=== PATIENT | male | born 1950 | race Caucasian/White ===

== ENCOUNTER 2016-06-26 11:57 | Inpatient (IN) ==
[2016-06-26 12:53] LABS: Basophils % 0.2 % (0.0-0.8); Eosinophils % 0.2 % (0.00-10.9); Hematocrit 22.1 VOL% (42.0-52.0); Hemoglobin 7.6 GM/DL (14.0-18.0); Immature Granulocytes % 4.5 %; Immature Granulocytes Absolute 0.68 #; Lymphocytes # 2.1 10*3/uL (1.4-4.0); Lymphocytes % 13.9 % (21.2-54.2); Mean Corpuscular HGB Conc 34.4 GM/DL (32-36); Mean Corpuscular Hemoglobin 34 PG (27-34); Mean Corpuscular Volume 99.1 FL (87-102); Mean Platelet Volume 10.5 FL (9.6-12.0); Monocytes # 1.1 10*3/uL (0.11-0.8); Monocytes % 7.3 % (1.7-12.7); NRBC # 0.15 10*3/uL; Neutrophils # 11.2 10*3/uL (1.4-7.4); Neutrophils % 73.9 % (38.7-73.9); Platelet Count 167 T/CUMM (130-400); Red Blood Count 2.23 MC/CUMM (3.8-5.5); Red Cell Distribution Width 13.7 % (9.3-17.3); White Blood Count 15.1 T/CUMM (4-12)
[2016-06-26 13:03] LABS: Calcium 8.6 MG/DL (8.5-10.1); Osmolality,Calculated 283.5 MOS/KG (273-304)
[2016-06-26] MEDS ORDERED: SODIUM CHLORIDE 0.9% 250 ML IV PRN ×2 (13:08→14:10)
[2016-06-26] MEDS ORDERED: ONDANSETRON 4 MG/2 ML VIAL IV PRN (13:33)
--- NOTE | 2016-06-26 13:56 | Hospitalist History & Physical ---
Assessment and Plan - Time spent with patient Time spent with patient: Greater than 30 minutes (34 minutes spent on admission) (1) Gastrointestinal bleeding, upper Status: Acute Assessment and plan: CXR U/A Serial H/H q 4 hours x 3 Transfuse two units of blood. GI consult May want to consider CT of abdomen History of Present Illness Chief complaint: GI Bleed History of present illness: Mr. Sweeney is a 66 year old male with history of Diverticulosis. Has not had a flare in 13 years. States he had a GI bleed 13 yaers ago that was a "ruptured Diverticulum with an abscess". States he notice dark tarry stool for several days became nauseated and weak today. Was seen by Dr. Scott today and sent to ER with H/H of 08/26. He denies any abdominal pain or discomfort. Has had no vomiting. Has had issues with urinary difficulty but has been told he has an enlarged prostate. Denies blood in his urine. He takes a baby asa daily with over the counter vitamins but no prescription medications. He is being admitted to the Hospitalist Service as observation. he will require a blood transfusion. Serial H/H with GI consult and the possibility of Endoscopy/ Colonoscopy. Home Medications Medication Instructions Recorded Confirmed Type Aspirin [Aspirin EC] 81 mg PO DAILY 06/26/16 06/26/16 History Multivitamin [Multivitamins] 1 each PO DAILY 06/26/16 06/26/16 History [place]-3/Dha/Epa/Fish Oil [Fish Oil 1 each PO DAILY 06/26/16 06/26/16 History 1,000 mg Softgel] Allergies Allergy/AdvReac Type Severity Reaction Status Date / Time No Known Allergies Allergy Unverified 06/26/16 12:05 Medical,Surgical,& Family Hx - Medical History Cardio: No history of: Congenital Heart Disease, Hypertension Neurology: No history of: Dementia HEENT: No history of: Ear Problem, Eye Problem, Dental Problems Endocrine: No history of: Diabetes Mellitus (NIDDM) Rheumatology: No history of;: Gout Genitourinary: History of: Prostate Problems Gastrointestinal: History of: Diverticulitis/ Diverticulosis No history of: GERD Hematology: History of: Anemia - Social History Smoking Status: Never smoker Frequency of Alcohol Use: None Type of Drug Use: None - Constitutional Constitutional: Present: fatigue, weakness. Absent: chills, fever(s), headache( s) - EENT Eyes: Absent: blurry vision Ears: Absent: decreased hearing Nose, mouth and throat: Absent: dysphagia, headache(s), sore throat, throat swelling - Cardiovascular Cardiovascular: Absent: chest pain at rest, dyspnea, edema - Respiratory Respiratory: Present: dyspnea on exertion. Absent: cough, dyspnea - Gastrointestinal Gastrointestinal: Present: nausea. Absent: abdominal pain, diarrhea, vomiting, jaundice - Genitourinary Genitourinary: Present: difficulty urinating - Musculoskeletal Musculoskeletal: Absent: joint swelling - Neurological Neurological: Absent: abnormal gait - Psychiatric Psychiatric: Absent: confusion - Endocrine Endocrine: Present: fatigue Exam - Constitutional Vitals: Period Temp Pulse Resp BP Sys/Flores Pulse Ox Last 24 Hr 98.3 F-98.3 F 85-91 19-20 135-178/89-97 98-100 General appearance: no acute distress - Head Head exam: Present: normal inspection - Eye Eye exam: Present: EOMI Pupils: Present: SHONDA - ENT ENT exam: Present: normal oropharynx - Neck Neck exam: Present: normal inspection. Absent: lymphadenopathy, thyromegaly - Respiratory Respiratory exam: Present: clear to auscultation bilaterally. Absent: chest wall tenderness, decreased breath sounds - Cardiovascular Cardiovascular exam: Present: regular rate and rhythm - GI/Abdominal GI/Abdominal exam: Present: hernia, soft. Absent: ascites, distended, firm, guarding, mass, tenderness, rebound - Extremities Exam Extremities exam: Present: normal inspection, full ROM - Back Exam Back exam: Present: normal inspection - Neurological Exam Neurological exam: Present: alert, oriented X3 - Psychiatric Psychiatric exam: Present: normal affect, normal mood - Skin Skin exam: Present: normal color, warm. Absent: cyanosis Results - Labs CBC & BMP: 06/26/16 12:20 06/26/16 12:20 - Diagnostic Findings Procedure: Chest x-ray: pending Quality Measures - VTE Contraindication to Pharmacological VTE Prophylaxis: Active Bleeding
[2016-06-26 15:10] LABS: % Iron Saturation 41.1 % (18-50); Ferritin 135.8 ng/ml (26-388)
--- NOTE | 2016-06-26 15:22 | Gastrointestinal Consult Note ---
Assessment and Plan (1) Gastrointestinal bleeding, upper Status: Acute Assessment and plan: 06/26-2 day history of fatigue/weakness and melena with findings of hemoglobin [address] Morales's office. Heme positive stools noted as well. No recent upper endoscopy. No reported regular NSAID use. Patient to be transfused 2 units of packed red blood cells. Plan for upper endoscopy tomorrow to further evaluate. Plan an addendum to followed by Dr. Kitchen Current Visit: Yes History of Present Illness Chief complaint: Heme positive stools, anemia History of present illness: Mr. Sweeney is a 66 year old male who presented to the clinic today to see Dr. Scott with complaints of weakness and fatigue. Patient states that he was in his usual state of health until Sunday when he noticed that he was not feeling well. He states that he noticed he was more fatigued than usual and also noticed that same day that his stools began to turn dark and tarry. Patient states that he presented to see Dr. Scott today for evaluation and at time of visit was found to have anemia with a hemoglobin of 7 as well as 4+ heme positive stools per patient's . Patient was direct admitted to the hospital for further workup. Patient states that he has never had a GI bleed in the past. Denies any abdominal pain, nausea, or vomiting. Denies any recent weight loss. Denies any dysphagia or odynophagia. States he has noticed recently that he has had increase dyspepsia after he eats. He also states that he has noticed increased coughing episodes after eating. He denies a history of reflux and does not take anything for this. He denies heavy NSAID use other than one ibuprofen every 3 or 4 days. He he denies a history of smoking but states he does drink on average 2 beers a day and has done so for many years. He has a history of a perforated diet for testicular abscess in 2008 which was resected by Dr. Jackson. He states that he has not had any further problems since this time. His last known EGD was in 2008 with normal findings and his last colonoscopy was in 2004 with only findings of sigmoid diverticulosis and small internal hemorrhoids. He states that he has not had any repeat endoscopy since this time. On admission hemoglobin noted at 7.6 with a BUN/creatinine ratio 33. Home Medications Medication Instructions Recorded Confirmed Type Aspirin [Aspirin EC] 81 mg PO DAILY 06/26/16 06/26/16 History Multivitamin [Multivitamins] 1 each PO DAILY 06/26/16 06/26/16 History [place]-3/Dha/Epa/Fish Oil [Fish Oil 1 each PO DAILY 06/26/16 06/26/16 History 1,000 mg Softgel] Allergies Allergy/AdvReac Type Severity Reaction Status Date / Time No Known Allergies Allergy Unverified 06/26/16 12:05 Medical,Surgical,& Family Hx - Medical History Cardio: No history of: Congenital Heart Disease, Hypertension Neurology: No history of: Dementia HEENT: No history of: Ear Problem, Eye Problem, Dental Problems Endocrine: No history of: Diabetes Mellitus (NIDDM) Rheumatology: No history of;: Gout Genitourinary: History of: Prostate Problems Gastrointestinal: History of: Diverticulitis/ Diverticulosis No history of: GERD Musculoskeletal: No history of: Amputation Hematology: History of: Anemia - Surgical History Cardiac Surgeries: Patient Denies: Cardiac Catheterization Thoracic Surgeries: Patient denies;: Lobectomy Abdominal Surgeries: Surgical HX of: Abdominal Surgery, Cholecystectomy (13in small in), Colonoscopy, Hernia Repair Reproductive Surgeries: Patient denies;: Genitourinary Surgery - Family History Family History: Reports;: Family Diabetes (mother and father), Family Heart Disease, Family Hypertension ("everybody") - Social History Smoking Status: Never smoker Frequency of Alcohol Use: Frequently Type of Drug Use: None 12 point system: reviewed and no additional remarkable complaints except as stated - Constitutional Constitutional: Present: as per HPI, lethargy, weakness - EENT Eyes: Present: as per HPI Ears: Present: as per HPI Nose, mouth and throat: Present: as per HPI - Cardiovascular Cardiovascular: Present: as per HPI - Respiratory Respiratory: Present: as per HPI - Gastrointestinal Gastrointestinal: Present: as per HPI, bloating, dyspepsia - Genitourinary Genitourinary: Present: as per HPI - Musculoskeletal Musculoskeletal: Present: as per HPI - Neurological Neurological: Present: as per HPI - Psychiatric Psychiatric: Present: as per HPI - Endocrine Endocrine: Present: as per HPI - Hematologic/Lymphatic Hematologic/Lymphatic: Present: as per HPI Exam - Constitutional Vitals: Period Temp Pulse Resp BP Sys/Flores Pulse Ox Last 24 Hr 98.0 F 89 18 186/94 100 General appearance: normal weight, no acute distress - Head Head exam: Present: normal inspection, normocephalic - Eye Eye exam: Present: other (Lids and conjunctive are unremarkable). Absent: scleral icterus - ENT ENT exam: Present: normal exam, normal oropharynx - Neck Neck exam: Present: normal inspection - Respiratory Respiratory exam: Present: clear to auscultation bilaterally. Absent: rales, rhonchi, wheezes - Cardiovascular Cardiovascular exam: Present: regular rate and rhythm. Absent: diastolic murmur , JVD, systolic murmur - GI/Abdominal GI/Abdominal exam: Present: normal bowel sounds, soft. Absent: ascites, distended, mass, organomegaly, tenderness - Extremities Exam Extremities exam: Present: normal inspection, full ROM - Back Exam Back exam: Present: normal inspection - Neurological Exam Neurological exam: Present: alert, oriented X3 - Psychiatric Psychiatric exam: Present: normal affect, normal mood - Skin Skin exam: Present: normal color, warm, dry Results - Labs CBC & BMP: 06/26/16 12:20 06/26/16 12:20 Lab Results: I have reviewed the past 24 hour labs Quality Measures - VTE Contraindication to Pharmacological VTE Prophylaxis: Active Bleeding - Stroke Symptom Onset Unknown: No
--- NOTE | 2016-06-26 15:45 | XRay Report ---
XR chest 2V Indication: GI bleed Comparison: None. Technique: PA and lateral chest x-ray was performed. Findings: Heart size, mediastinal contour, and hilar structures demonstrate no significant abnormalities. The lung parenchyma is clear. Bones and soft tissues demonstrate no significant abnormalities. Moderate left glenohumeral joint degenerative changes are suggested. Impression: 1. No findings are present to suggest etiology of the provided symptoms. 06/26/2016 3:41 PM PROCEDURE INTERPRETED AT [facility] DEPARTMENT OF RADIOLOGY Final Report Signed by: Dr. Santino Alba
[2016-06-26 16:10] LABS: Folate > 24.0 NG/ML (5.4-24.0); Vitamin B12 302 PG/ML (211-911)
[2016-06-26 16:48] LABS: Apearance,Urine CLEAR (Clear); Bilirubin,Urine Negative (Negative); Blood, Urine Negative (Negative); Glucose,Urine (UA) Negative (Negative); Ketones,Urine Negative (Negative); Nitrite,Urine Negative (Negative); Protein,Urine Negative; RBC,Urine <1 /HPF (0-4); Urine Color Yellow (Yellow); Urine Specific Gravity 1.015 (1.001-1.035); Urine Urobilinogen < 2.0 EU/DL (0.2-1.0); WBC,Urine 1 /HPF (0-6)
[2016-06-26] MEDS: PANTOPRAZOLE 40 MG VIAL IV SCH (22:32)
[2016-06-27 00:49] LABS: Hematocrit 21.1 VOL% (42.0-52.0); Hemoglobin 7.1 GM/DL (14.0-18.0)
[2016-06-27 06:10] LABS: Basophils % 0.3 % (0.0-0.8); Eosinophils # 0.2 10*3/uL (0.0-0.87); Eosinophils % 1.4 % (0.00-10.9); Hematocrit 21.2 VOL% (42.0-52.0); Hemoglobin 6.9 GM/DL (14.0-18.0); Immature Granulocytes % 4.6 %; Lymphocytes # 2.3 10*3/uL (1.4-4.0); Mean Corpuscular HGB Conc 32.5 GM/DL (32-36); Mean Corpuscular Hemoglobin 31 PG (27-34); Mean Corpuscular Volume 95.9 FL (87-102); Mean Platelet Volume 10.5 FL (9.6-12.0); Monocytes # 0.9 10*3/uL (0.11-0.8); Monocytes % 8.5 % (1.7-12.7); Neutrophils % 64.2 % (38.7-73.9); Platelet Count 133 T/CUMM (130-400); Red Blood Count 2.21 MC/CUMM (3.8-5.5); Red Cell Distribution Width 16.7 % (9.3-17.3); White Blood Count 10.9 T/CUMM (4-12)
[2016-06-27 06:47] LABS: Calcium 7.9 MG/DL (8.5-10.1); Osmolality,Calculated 285.1 MOS/KG (273-304); Potassium 3.9 MMOL/L (3.5-5.1)
[2016-06-27] MEDS ORDERED: SODIUM CHLORIDE 0.9% 250 ML IV PRN (08:04)
--- NOTE | 2016-06-27 08:37 | EKG Report ---
Stationary ECG Study [facility] Test Date: 06/27/2016 8:37:01 AM Pat Name: AGNES HSU Department: Room: 243 Gender: M Director Of Design: PEBBLES : 1950 Requested by: Ashli Stephen Order Number: [id number] Reading MD: DESHAWN SHELL Intervals [place] Rate: 69 P: -23 VA: 181 QRS: 3 QRSD: 94 T: 30 QT: 380 QTc: 399 Interpretive Statements SINUS RHYTHM LEFT VENTRICULAR HYPERTROPHY AND ST-T CHANGE INFERIOR MYOCARDIAL INFARCTION, PROBABLY OLD WITH POSTERIOR EXTENSION Electronically Signed On 06-27-16 14:56:14 CDT by DESHAWN SHELL [email or web address]
[2016-06-27] MEDS: PANTOPRAZOLE 40 MG VIAL IV SCH ×2 (08:43→20:53)
--- NOTE | 2016-06-27 12:22 | Physician Query Form ---
CLICK EDIT DOCUMENT TO SELECT QUERY ANSWER --> OK --> SIGN Bere Alba RN, CCDS Certified Clinical Relief Operator W) [phone] (f) [phone] [email or web address] PROVIDERS: Make your selection(s) from the choices in EACH section by typing an "x" and enter comments in the comment section. Please use your independent medical judgment in providing your response. This request does not imply that any particular answer is desired or expected. CLINICAL INDICATORS: (Providers should not edit this section) The medical record indicates that the patient was admitted with Gastrointestinal Bleeding, HH 7.6/22.1 AND the patient was given 2 units of blood. Based on the above, could you clarify which of the following conditions you are evaluating, treating, and/or monitoring? ( x) Blood loss anemia ( x) acute ( ) chronic ( ) acute on chronic ( ) Acute blood loss anemia on baseline chronic anemia ( ) Acute blood loss anemia as a complication of a procedure ( ) Iron deficiency anemia not associated with blood loss ( ) Dilutional anemia due to IV fluids ( ) Anemia due to chemotherapy ( ) Anemia due to neoplastic disease ( ) Anemia due to chronic kidney disease ( ) Pernicious anemia ( ) Aplastic anemia ( ) Hemolytic anemia ( ) immune ( ) non-immune - please specify cause: ( ) Anemia due to other condition, please specify: ( ) Clinically unable to determine COMMENTS: PLEASE ALSO DOCUMENT RESPONSE IN PROGRESS NOTES AND/OR DISCHARGE SUMMARY Use of terms such as suspected, likely, or probable (associated with a specific diagnosis that is being evaluated, monitored, or treated as if it exists) are acceptable and can be restated in the discharge summary if not ruled out. MTDD
--- NOTE | 2016-06-27 12:42 | Hospitalist Progress Note ---
Assessment and Plan - Time spent with patient Time spent with patient: Greater than 30 minutes (1) Gastrointestinal bleeding, upper Status: Acute Assessment and plan: Continue current management, PPI and EGD today. Current Visit: Yes (2) Acute blood loss anemia Status: Acute Assessment and plan: Hg 7. Will transfuse 2 units pRBC. Current Visit: Yes Hospitalist: Subjective Interval history: No complaints from the patient. He hasnt had a BM yet. Hg level is lower today. Exam - Constitutional Vitals: Period Temp Pulse Resp BP Sys/Flores Pulse Ox Last 24 Hr 97.8 F-100.0 F 71-86 16-24 135-179/70-98 93-98 General appearance: no acute distress - Head Head exam: Present: normocephalic, atraumatic - Eye Eye exam: Present: EOMI Pupils: Present: SHONDA - ENT ENT exam: Present: normal exam - Neck Neck exam: Present: normal inspection - Respiratory Respiratory exam: Present: clear to auscultation bilaterally. Absent: rhonchi, wheezes - Cardiovascular Cardiovascular exam: Present: regular rate and rhythm. Absent: gallop, rubs, systolic murmur - GI/Abdominal GI/Abdominal exam: Present: normal bowel sounds, soft. Absent: distended, firm , guarding, tenderness, rebound - Extremities Exam Extremities exam: Present: normal inspection. Absent: calf tenderness, edema Results - Labs CBC & BMP: 06/27/16 05:18 06/27/16 05:18 Lab Results: I have reviewed the past 24 hour labs Quality Measures - VTE Contraindication to Pharmacological VTE Prophylaxis: Active Bleeding - Stroke Symptom Onset Unknown: No
--- NOTE | 2016-06-27 12:59 | History and Physical Update ---
History and Physical Update - History and Physical H&P was reviewed, the patient examined and there: are no changes in the patients condition since last H&P was completed. - Physical Exam Mental Status: alert and oriented Heart: regular rate and rhythm Lung: clear to auscultation Abdomen: within normal limits Vitals: within normal limits
[2016-06-27] MEDS ORDERED: LIDOCAINE 1% 5 ML VIAL ONE (13:03)
[2016-06-27] MEDS ORDERED: PROPOFOL 200 MG/20 ML VIAL IV ONE (13:03)
--- NOTE | 2016-06-27 13:18 | Operative Note ---
Date of procedure: 06/27/16 Pre-op diagnosis: GI bleed with melena Procedure: Procedure: Esophagogastroduodenoscopy with biopsies gastric ulcer Brief clinical abstract: Patient is a 66-year-old male admitted with recent melena and weakness with symptomatic anemia. He has been transfused 2 units packed red blood cells. Indication for procedure: GI bleed with melena, anemia Endoscopic findings:[After informed consent was obtained, the patient was placed in the left lateral decubitus position. The gastroscope was inserted in the upper esophagus under direct vision with no resistance encountered. Esophageal mucosa appeared normal down to the squamocolumnar junction sharply demarcated above a small hiatal hernia. The endoscope was advanced in the stomach which was carefully examined including retroflexed view of the cardia and fundus. 2 ulcers were noted in the prepyloric antrum. 1 of these was circumferentially oriented at 12:00 and superficial with diameter 1.5-2 cm with no visible vessel. The other was along the anterior antrum and 6-7 mm diameter with no visible vessel. Biopsies were obtained from the margin base of these for pathologic examination. Remainder the stomach appeared normal. The pyloric channel, duodenal bulb, second and third portion of the duodenum were normal. The endoscope was removed and patient appeared to tolerate the procedure well. Impression: #1 small hiatal hernia #2 gastric antral ulcers-appearance suggests low risk of further significant bleeding Recommendations: Continue PPI therapy for now. He will need colonoscopy at some point. Could do tomorrow if he agrees to proceed. Anesthesia: MAC Surgeon / Physician: Walter Kitchen Estimated blood loss: minimal Specimens: other (Gastric ulcer) Condition: stable Disposition: post procedure unit Results - Labs CBC & BMP: 06/27/16 05:18 06/27/16 05:18 Discharge Plan - Discharge Medications No Action Multivitamin [Multivitamins] 1 each PO DAILY [place]-3/Dha/Epa/Fish Oil [Fish Oil 1,000 mg Softgel] 1 each PO DAILY Aspirin [Aspirin EC] 81 mg PO DAILY - Follow Up or Referral - Forms/Instructions
--- NOTE | 2016-06-27 13:22 | Anesthesia Post-Op ---
Anesthesia Post OP - Post Ansesthetic Evaluation Patient seen in post op: Yes Resp: within normal limits CV: within normal limits Mental: within normal limits Temp: within normal limits Ufar-[id number]-[id number]: within normal limits Nausea and Vomiting: within normal limits Pain: within normal limits
[2016-06-27] MEDS ORDERED: POLYETHYLENE GLYCOL POWDER 255 GM BOTTLE PO ONE (18:00)
[2016-06-27 20:19] LABS: Hemoglobin 8.3 GM/DL (14.0-18.0)
[2016-06-28] MEDS ORDERED: MAGNESIUM CITRATE 300 ML BOTTLE PO ONE (06:00)
[2016-06-28 06:26] LABS: Basophils % 0.6 % (0.0-0.8); Eosinophils # 0.2 10*3/uL (0.0-0.87); Eosinophils % 3.1 % (0.00-10.9); Hematocrit 26.3 VOL% (42.0-52.0); Hemoglobin 8.6 GM/DL (14.0-18.0); Immature Granulocytes Absolute 0.35 #; Lymphocytes # 1.7 10*3/uL (1.4-4.0); Lymphocytes % 24.4 % (21.2-54.2); Mean Corpuscular HGB Conc 32.7 GM/DL (32-36); Mean Corpuscular Hemoglobin 31 PG (27-34); Mean Corpuscular Volume 94.6 FL (87-102); Monocytes # 0.6 10*3/uL (0.11-0.8); Monocytes % 8.7 % (1.7-12.7); NRBC # 0.07 10*3/uL; Neutrophils # 4.1 10*3/uL (1.4-7.4); Neutrophils % 58.2 % (38.7-73.9); Platelet Count 133 T/CUMM (130-400); Red Blood Count 2.78 MC/CUMM (3.8-5.5); Red Cell Distribution Width 18.1 % (9.3-17.3); White Blood Count 7.1 T/CUMM (4-12)
[2016-06-28 06:52] LABS: Calcium 7.8 MG/DL (8.5-10.1); Osmolality,Calculated 282.1 MOS/KG (273-304); Potassium 3.7 MMOL/L (3.5-5.1)
--- NOTE | 2016-06-28 09:12 | Hospitalist Progress Note ---
Assessment and Plan - Time spent with patient Time spent with patient: Greater than 30 minutes (1) Gastrointestinal bleeding, upper Status: Acute Assessment and plan: Continue current management, [place] today. Current Visit: Yes (2) Acute blood loss anemia Status: Acute Assessment and plan: Hg stable. EGD results noted. Current Visit: Yes Hospitalist: Subjective Interval history: No new complaints, no overnight events. EGD done yesterday. Exam - Constitutional Vitals: Period Temp Pulse Resp BP Sys/Flores Pulse Ox Last 24 Hr 97.3 F-100.0 F 64-80 15-24 104-174/66-92 96-100 General appearance: normal weight, no acute distress - Head Head exam: Present: normocephalic, atraumatic - Eye Eye exam: Present: EOMI Pupils: Present: SHONDA - ENT ENT exam: Present: normal exam - Neck Neck exam: Present: normal inspection - Respiratory Respiratory exam: Present: clear to auscultation bilaterally. Absent: rhonchi, wheezes - Cardiovascular Cardiovascular exam: Present: regular rate and rhythm. Absent: gallop, rubs, systolic murmur - GI/Abdominal GI/Abdominal exam: Present: normal bowel sounds, soft. Absent: distended, firm , guarding, tenderness, rebound - Extremities Exam Extremities exam: Present: normal inspection. Absent: calf tenderness, edema Results - Labs CBC & BMP: 06/28/16 06:06 06/28/16 06:06 Lab Results: I have reviewed the past 24 hour labs Quality Measures - VTE Contraindication to Pharmacological VTE Prophylaxis: Active Bleeding - Stroke Symptom Onset Unknown: No
[2016-06-28] MEDS: PANTOPRAZOLE 40 MG VIAL IV SCH (09:56)
--- NOTE | 2016-06-28 12:46 | History and Physical Update ---
History and Physical Update - Physical Exam Mental Status: alert and oriented Heart: regular rate and rhythm Lung: clear to auscultation Abdomen: within normal limits Vitals: within normal limits History and Physical Changes: 66-year-old male admitted with GI bleeding felt to be related to gastric ulcer. His last colonoscopy was over 10 years ago.
--- NOTE | 2016-06-28 12:49 | Pathology Report from [facility] ---
[facility] ACCESSION # : [id number] PATIENT NAME : Leo Sweeney ORDERING DR : DENISHA FRANK MD CLINICAL HX: GI bleed POST-OP DX: Same SPECIMEN INFO: Gastric BX GROSS DESCRIPTION: The specimen is received in formalin labeled with the patients name and consists of a 0.4 x 0.2 cm raman tissue fragment. Submitted in one cassette. DIAGNOSIS FOR LEO SWEENYE: GASTRIC BIOPSY: Chronic superficial gastritis. H. pylori not seen on special stain. COLLECTED DATE: 06/27/2016 [facility] REPORT DATE: 06/28/2016 ELECTRONICALLY SIGNED BY: Erika Curtis M.D. 06/28/2016 - 9:26:54 [email or web address]
--- NOTE | 2016-06-28 12:52 | Operative Note ---
Date of procedure: 06/28/16 Pre-op diagnosis: Colon cancer screening Procedure: Procedure note: Colonoscopy with hot biopsy removal polyps Physician: Dr. Isaias Kitchen Brief clinical abstract: 66-year-old male is admitted with GI bleeding felt related to gastric ulcer. He presents now for colon cancer screening. His last colonoscopy was over 10 years ago. Endoscopic findings: After informed consent was obtained, the patient was placed in the left lateral decubitus position. Digital rectal exam was performed with no palpable abnormalities felt. Pediatric videocolonoscope was inserted into the rectum and advanced to the cecum without difficulty. Retroflex view within the cecum was performed back to the level of the hepatic flexure. The endoscope was advanced back to the cecum and on withdrawal colonic mucosa was carefully examined. Bowel prep was of good quality. Withdrawal time was over 6 minutes duration. 3 polyps ranging in size from 3-5 mm diameter were noted in the descending and sigmoid colon. Each of these were removed with hot biopsy forceps. A moderate number of diverticuli were noted in the sigmoid colon. The endoscope was withdrawn in the rectum with retroflex view small internal hemorrhoids. The endoscope was removed and patient appeared to tolerate the procedure well. Impression: #1 diminutive left colon polyps #2 sigmoid diverticulosis #3 small internal hemorrhoids Plan: If polyps adenomatous, would plan to repeat colonoscopy in 5 years. Anesthesia: MAC Surgeon / Physician: Walter Kitchen Estimated blood loss: none Specimens: other (Colon polyps) Condition: stable Disposition: post procedure unit Results - Labs CBC & BMP: 06/28/16 06:06 06/28/16 06:06 Discharge Plan - Discharge Medications No Action Multivitamin [Multivitamins] 1 each PO DAILY [place]-3/Dha/Epa/Fish Oil [Fish Oil 1,000 mg Softgel] 1 each PO DAILY Aspirin [Aspirin EC] 81 mg PO DAILY - Follow Up or Referral - Forms/Instructions
--- NOTE | 2016-06-28 13:08 | Anesthesia Post-Op ---
Anesthesia Post OP - Post Ansesthetic Evaluation Patient seen in post op: Yes Resp: within normal limits CV: within normal limits Mental: within normal limits Temp: within normal limits [id number]: within normal limits Nausea and Vomiting: within normal limits Pain: within normal limits
[2016-06-28 13:21] VITALS: BP 130/82
--- NOTE | 2016-06-28 13:54 | Discharge Summary ---
Hospital Course - Hospital Course Hospital Course: Mr. Sweeney was admitted for evaluation of symptomatic anemia. His hemoglobin was found to be 7.6 on admission. This was followed and dropped to 6.9 at which point the patient received 4 units of packed red blood cells. Hemoglobin responded accordingly. Patient had an upper and lower endoscopy. Upper endoscopy revealed gastric antral ulcers. Lower endoscopy revealed small polyp however no significant findings. Patient will be discharged with a proton pump inhibitor in addition to iron replacement therapy. He will follow-up with gastroenterology in 4-6 weeks. He was encouraged to see his primary care provider sooner. By discharge she had met maximum benefit of hospitalization. I spent 38 minutes coordinating this discharge. - Time spent with patient Time with patient DS: Greater than 30 minutes Diagnosis - Discharge Diagnosis (1) Gastrointestinal bleeding, upper Status: Acute (2) Acute blood loss anemia Status: Acute Specialty Discharge - Follow Up or Referrals Follow up with: Walter Kitchen MD [Physician] - 07/31/16 2:30 pm Discharge Plan - Discharge Data Disposition: Disch To Home/Self Care Condition at Discharge: Stable Discharge Diet: advance to your usual diet Activity: resume usual activities as tolerated Hygiene: no restrictions - Discharge Medications New Pantoprazole Tab [Protonix Tab] 40 mg PO BID #60 tablet Ferrous Sulfate [Ferrous Sulfate Cap] 325 mg PO BID #60 capsule Continue Multivitamin [Multivitamins] 1 each PO DAILY [place]-3/Dha/Epa/Fish Oil [Fish Oil 1,000 mg Softgel] 1 each PO DAILY Discontinued Aspirin [Aspirin EC] 81 mg PO DAILY - Follow Up or Referral Follow Up: Walter Kitchen MD [Physician] - 07/31/16 2:30 pm - Forms/Instructions Exam - Constitutional Vitals: Period Temp Pulse Resp BP Sys/Flores Pulse Ox Last 24 Hr 97.3 F-99.1 F 58-79 16-22 116-177/57-98 93-99 General appearance: normal weight, no acute distress - Head Head exam: Present: normal inspection, normocephalic, atraumatic - Eye Eye exam: Present: EOMI Pupils: Present: SHONDA - ENT ENT exam: Present: normal exam - Neck Neck exam: Present: normal inspection - Respiratory Respiratory exam: Present: clear to auscultation bilaterally. Absent: accessory muscle use, prolonged expiratory phase, wheezes - Cardiovascular Cardiovascular exam: Present: regular rate and rhythm. Absent: bradycardia, irregular rhythm, systolic murmur - GI/Abdominal GI/Abdominal exam: Present: normal bowel sounds. Absent: ascites, hypoactive bowel sounds, tenderness - Extremities Exam Extremities exam: Present: normal inspection Discharge Results Labs on day of discharge: Labs from last 24 hours 06/28/16 06/28/16 06/27/16 06:06 06:06 21:10 WBC 7.1 D RBC 2.78 L D Hgb 8.6 L Hct 26.3 L MCV 94.6 MCH 31 MCHC 32.7 RDW 18.1 H Plt Count 133 MPV 10.0 Neut % (Auto) 58.2 Lymph % (Auto) 24.4 [place] % (Auto) 8.7 Eos % (Auto) 3.1 Baso % (Auto) 0.6 Neut # (Auto) 4.1 Lymph # (Auto) 1.7 [place] # (Auto) 0.6 Eos # (Auto) 0.2 Baso # (Auto) 0.0 Immature Gran % 5.0 Nucleated RBC % 1.0 Immature Gran # 0.35 Nucleated RBCs # 0.07 Sodium 142 Potassium 3.7 Chloride 107 Carbon Dioxide 28 Anion Gap 10.7 BUN 12 Creatinine 0.80 GFR Calculation 131 BUN/Creatinine Ratio 15.00 Glucose 105 POC Glucose 157 H Calculated Osmolality 282.1 Calcium 7.8 L Blood Type Antibody Screen Crossmatch Blood Bank Comment 06/27/16 06/27/16 06/27/16 20:00 16:46 08:04 WBC RBC Hgb 8.3 L D Hct 25.0 L MCV MCH MCHC RDW Plt Count MPV Neut % (Auto) Lymph % (Auto) [place] % (Auto) Eos % (Auto) Baso % (Auto) Neut # (Auto) Lymph # (Auto) [place] # (Auto) Eos # (Auto) Baso # (Auto) Immature Gran % Nucleated RBC % Immature Gran # Nucleated RBCs # Sodium Potassium Chloride Carbon Dioxide Anion Gap BUN Creatinine GFR Calculation BUN/Creatinine Ratio Glucose POC Glucose 144 H Calculated Osmolality Calcium Blood Type Cancelled Antibody Screen Cancelled Crossmatch See Detail Blood Bank Comment Cancelled DS: Provider Date of admission: 06/26/16 14:53 Primary care physician: . No PCP Attending physician on admission: Ruth Davey MD Consults: 06/26/16 15:03 Consult to Physician [CONS] Routine Comment: Consulting Provider: Walter Kitchen Consult to Specialist Group: Gastroenterology When should Consulting Provider be notified: Now Consult Notification Comment: spoke with Debbi aquino Discharging clinician: Ruth Davey MD Expected date of discharge: 06/28/16
--- NOTE | 2016-06-28 14:25 | Physician Query Form ---
CLICK EDIT DOCUMENT TO SELECT QUERY ANSWER --> OK --> SIGN Bere Alba RN, CCDS Certified Clinical Rn Long Term Care W) [phone] (f) [phone] [email or web address] PROVIDERS: Make your selection(s) from the choices in EACH section by typing an "x" and enter comments in the comment section. Please use your independent medical judgment in providing your response. This request does not imply that any particular answer is desired or expected. CLINICAL INDICATORS: (Providers should not edit this section) Height: 5' 11" Weight: 130.18 kg Application Development Intern BMI: 40.0 Pill Maker Notes: Application Development Intern Recommendations: The medical record indicates that the patient was admitted with Gastrointestinal Bleeding, BMI of 40.0, Class 3 Obesity, Ht. 5' 11" and wt. 130.18Kg. If applicable, please provide an associated diagnosis related to the abnormal BMI: BMI of 40 or greater: ( ) Overweight ( ) Obesity (x ) Morbid//Severe Obesity ( ) Obesity with Alveolar Hypoventilation ( ) Weight Gain ( ) BMI is not significant ( ) Other, please specify: ( ) Clinically unable to determine COMMENTS: PLEASE ALSO DOCUMENT RESPONSE IN PROGRESS NOTES AND/OR DISCHARGE SUMMARY Use of terms such as suspected, likely, or probable (associated with a specific diagnosis that is being evaluated, monitored, or treated as if it exists) are acceptable and can be restated in the discharge summary if not ruled out. MTDD
[2016-06-28] MEDS ORDERED: PANTOPRAZOLE 40 MG TABLET PO SCH (21:00)
--- NOTE | 2016-06-29 14:39 | Physician Query Form ---
CLICK EDIT DOCUMENT TO SELECT QUERY ANSWER --> OK --> SIGN Bere Alba RN, CCDS Certified Clinical English Teacher W) [phone] (f) [phone] [email or web address] PROVIDERS: Make your selection(s) from the choices in EACH section by typing an "x" and enter comments in the comment section. Please use your independent medical judgment in providing your response. This request does not imply that any particular answer is desired or expected. CLINICAL INDICATORS: (Providers should not edit this section) "gastric antral ulcers-appearance suggests low risk of further significant bleeding" As the attending MD can you please clarify the acuity of the ulcers. Clarify which of the following accurately represents the acuity of the above diagnosis. (x ) Acute ( ) Acute on chronic ( ) Chronic stable condition ( ) Remission ( ) Other, please specify: ( ) Clinically unable to determine COMMENTS: PLEASE ALSO DOCUMENT RESPONSE IN PROGRESS NOTES AND/OR DISCHARGE SUMMARY Use of terms such as suspected, likely, or probable (associated with a specific diagnosis that is being evaluated, monitored, or treated as if it exists) are acceptable and can be restated in the discharge summary if not ruled out. MTDD
== END 2016-06-28 15:30 | disposition home or self-care (01) | DRG 378 ==
LOC: N.ED 11:57 → N.2E 11:57
PROVIDERS: ADMIT Internal Medicine; ATTEND Internal Medicine

== ENCOUNTER 2016-09-21 05:30 | Inpatient (IN) ==
--- NOTE | 2016-09-11 10:10 | EKG Report ---
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
[2016-09-11 10:23] LABS: Basophils % 0.8 % (0.0-0.8); Eosinophils # 0.3 10*3/uL (0.0-0.87); Eosinophils % 5.8 % (0.00-10.9); Hematocrit 47.5 VOL% (42.0-52.0); Hemoglobin 16.6 GM/DL (14.0-18.0); Immature Granulocytes % 0.4 %; Immature Granulocytes Absolute 0.02 #; Lymphocytes # 1.7 10*3/uL (1.4-4.0); Lymphocytes % 32.4 % (21.2-54.2); Mean Corpuscular HGB Conc 34.9 GM/DL (32-36); Mean Corpuscular Hemoglobin 32 PG (27-34); Mean Corpuscular Volume 91.9 FL (87-102); Mean Platelet Volume 10.1 FL (9.6-12.0); Monocytes # 0.6 10*3/uL (0.11-0.8); Monocytes % 12.2 % (1.7-12.7); Neutrophils # 2.5 10*3/uL (1.4-7.4); Neutrophils % 48.4 % (38.7-73.9); Platelet Count 157 T/CUMM (130-400); Red Blood Count 5.17 MC/CUMM (3.8-5.5); Red Cell Distribution Width 13.3 % (9.3-17.3); White Blood Count 5.2 T/CUMM (4-12)
[2016-09-11 10:32] LABS: PT Patient Result 10.4 SECS; Partial Thromboplastin Time 26.5 SECS (0-40)
[2016-09-11 10:46] LABS: Apearance,Urine CLEAR (Clear); Bilirubin,Urine Negative (Negative); Blood, Urine Negative (Negative); Glucose,Urine (UA) Negative (Negative); Ketones,Urine Negative (Negative); Nitrite,Urine Negative (Negative); Protein,Urine Negative; RBC,Urine <1 /HPF (0-4); Urine Color Yellow (Yellow); Urine Urobilinogen < 2.0 EU/DL (0.2-1.0); WBC,Urine <1 /HPF (0-6)
[2016-09-11 10:49] LABS: Albumin 4.2 G/DL (3.4-5.0); Bilirubin,Total 0.8 MG/DL (0.2-1.0); Calcium 9.5 MG/DL (8.5-10.1); Osmolality,Calculated 277.4 MOS/KG (273-304); Potassium 4.2 MMOL/L (3.5-5.1); Total Protein 8.2 G/DL (6.4-8.3)
--- NOTE | 2016-09-11 11:24 | XRay Report ---
XR chest 2V Date: 09/11/2016 10:04 AM History: Respiratory preoperative evaluation Comparison: 06/26/2016 Technique: PA and lateral chest Findings: The heart is normal in size with uncoiling of the aorta. The lungs and mediastinum are stable in appearance. Degenerative changes are noted. Impression: No acute cardiopulmonary pathology identified. PROCEDURE INTERPRETED AT [facility] DEPARTMENT OF RADIOLOGY Final Report Signed by: Dr. Ashli tSaley
[2016-09-21] MEDS ORDERED: VANCOMYCIN 1,000 MG VIAL ONE (05:50)
[2016-09-21] MEDS ORDERED: ceFAZolin 1,000 MG VIAL ONE (05:50)
[2016-09-21] MEDS ORDERED: SODIUM CHLORIDE 0.9% 100 ML IV ONE (05:51)
[2016-09-21] MEDS ORDERED: LACTATED RINGERS 1,000 ML IV SCH (06:00)
[2016-09-21] MEDS ORDERED: VANCOMYCIN INJ 1,000 MG in SODIUM CHLORIDE 0.9% 250 ML IV ONE (06:00)
[2016-09-21] MEDS ORDERED: TRANEXAMIC ACID 1,000 MG/10 ML VIAL IV ONE (06:22)
--- NOTE | 2016-09-21 06:48 | History and Physical Update ---
History and Physical Update - History and Physical H&P was reviewed, the patient examined and there: are no changes in the patients condition since last H&P was completed.
[2016-09-21] MEDS ORDERED: ROCURONIUM 100 MG/10 ML VIAL IV ONE (07:00)
[2016-09-21] MEDS ORDERED: LABETALOL 100 MG/20 ML VIAL IV ONE (07:00)
[2016-09-21] MEDS ORDERED: NEOSTIGMINE 10 MG/10 ML VIAL ONE (07:00)
[2016-09-21] MEDS ORDERED: PROPOFOL 200 MG/20 ML VIAL IV ONE (07:00)
[2016-09-21] MEDS ORDERED: ESMOLOL 100 MG/10 ML VIAL IV ONE (07:00)
[2016-09-21] MEDS ORDERED: ONDANSETRON 4 MG/2 ML VIAL ONE ×2 (07:00→08:46)
[2016-09-21] MEDS ORDERED: PHENYLEPHRINE 1 MG/10 ML SYRINGE IV ONE (07:00)
[2016-09-21] MEDS ORDERED: GLYCOPYRROLATE 0.4 MG/2 ML VIAL ONE (07:00)
[2016-09-21] MEDS ORDERED: SUCCINYLCHOLINE 200 MG/10 ML VIAL ONE (07:00)
[2016-09-21] MEDS ORDERED: LIDOCAINE 1% 5 ML VIAL ONE (07:00)
[2016-09-21] MEDS ORDERED: ZALEPLON 5 MG CAPSULE PO PRN (07:30)
[2016-09-21] MEDS ORDERED: oxyCODONE IR 5 MG TABLET PO PRN ×2 (07:30)
[2016-09-21] MEDS ORDERED: ONDANSETRON 4 MG/2 ML VIAL IV PRN ×2 (07:30→09:33)
[2016-09-21] MEDS ORDERED: MAGNESIUM HYDROXIDE SUSP 30 ML UDCUP PO PRN (07:30)
[2016-09-21] MEDS ORDERED: MORPHINE 2 MG/1 ML SYRINGE IV PRN ×2 (07:30)
[2016-09-21] MEDS ORDERED: diphenhydrAMINE CAP 25 MG CAPSULE PO PRN (07:30)
[2016-09-21] MEDS ORDERED: ROPIVACAINE 0.5% 30 ML VIAL ONE (07:57)
[2016-09-21] MEDS ORDERED: HYDROmorphone 2 MG/1 ML VIAL ONE (08:46)
--- NOTE | 2016-09-21 08:49 | Operative Note ---
Date of procedure: 09/21/16 Procedure: DIAGNOSIS: Right knee primary osteoarthrosis PROCEDURE: Right total knee arthroplasty (cpt #53343) SURGEON: Raegan ANESTHESIA: General with a postoperative adductor canal block PROCEDURE and FINDINGS: After adequate was induced, the patient's knee was prepped and draped in the usual sterile fashion. The limb was exsanguinated with Esmarch. Tourniquet was inflated to 300 mmHg. A median parapatellar approach was made. Femur was cut using an intramedullary guide and a 4 in 1 cutting jig in 5 degrees of valgus. ACL and menisci were excised. Tibia was cut using intramedullary guide. Patella was cut using freehand technique. Components were trialed. Tibial fin was prepared. Components are cemented in place using Palacos cement and modern cementing techniques. Cement was removed. A 1/8 inch Hemovac drain was placed. The knee was well-balanced and full range of motion with central tracking patella. Deep layers closed with 0-0 Vicryl. Superficial layers were closed with 2-0 and 3-0 Vicryl. Skin was approximated with clayton. Bacitracin and a sterile dressing was applied. Patient was transferred to recovery. A postoperative adductor canal block is anticipated. COMPONENTS: The Dinesh Persona system was used. 9 CR standard femur, G natural tibia, 10 mm liner, 35 mm patella TOURNIQUET TIME: 42 minutes Shortly after the incision, the patient went into atrial fibrillation. Cardiology is to be consulted postoperatively. Surgeon / Physician: Everardo Carlin Jr. Results - Labs CBC & BMP: 09/11/16 10:18 09/11/16 10:18 Discharge Plan - Discharge Medications No Action Multivitamin [Multivitamins] 1 each PO DAILY [place]-3/Dha/Epa/Fish Oil [Fish Oil 1,000 mg Softgel] 1 each PO DAILY Ubidecarenone [Co Q-10] 100 mg PO DAILY - Follow Up or Referral - Forms/Instructions
--- NOTE | 2016-09-21 08:54 | EKG Report ---
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
[2016-09-21] MEDS ORDERED: KETOROLAC 30 MG/1 ML VIAL ONE (09:07)
[2016-09-21] MEDS: KETOROLAC 30 MG/1 ML VIAL IV SCH ×3 (09:09→18:36)
--- NOTE | 2016-09-21 09:23 | XRay Report ---
2 views of the right knee. Indication: Postoperative. There has been a right total knee replacement. Surgical drains and skin clayton project over the soft tissues. The hardware is in good position. There is no evidence of acute fracture or dislocation. Impression: Expected postoperative appearance. PROCEDURE INTERPRETED AT [facility] DEPARTMENT OF RADIOLOGY Final Report Signed by: Dr. Jimena Benitez
[2016-09-21] MEDS: HYDROmorphone 2 MG/1 ML VIAL IV PRN ×2 (09:35→09:40)
--- NOTE | 2016-09-21 09:35 | Anesthesia Post-Op ---
Anesthesia Post OP - Post Ansesthetic Evaluation Patient seen in post op: Yes Resp: within normal limits CV: other (intraop a-flutter, HR now 72, cardiology consulted, pt in stable condition) Mental: within normal limits Temp: within normal limits [id number]: within normal limits Nausea and Vomiting: within normal limits Pain: within normal limits
[2016-09-21] MEDS ORDERED: SEVOFLURANE 1 UNIT/15 MINUTE INH ONE (09:37)
[2016-09-21] MEDS ORDERED: ePHEDrine 50 MG/ML AMP ONE (09:38)
[2016-09-21] MEDS ORDERED: MIDAZOLAM 2 MG/2 ML VIAL ONE (09:38)
[2016-09-21] MEDS ORDERED: fentaNYL 100 MCG/2 ML VIAL ONE (09:38)
[2016-09-21] MEDS ORDERED: LACTATED RINGERS 2,000 ML IV ONE (09:38)
[2016-09-21] MEDS ORDERED: ACETAMINOPHEN 1,000 MG/100 ML VIAL IV ONE (09:38)
[2016-09-21] MEDS: ACETAMINOPHEN 500 MG TABLET PO SCH ×3 (10:41→23:18)
[2016-09-21] MEDS: DOCUSATE SODIUM 100 MG CAPSULE PO SCH ×2 (10:41→21:26)
[2016-09-21] MEDS: MULTIVITAMIN (CENTRUM) TABLET PO SCH (10:41)
[2016-09-21] MEDS: LACTATED RINGERS 1,000 ML IV SCH ×3 (10:42→23:16)
[2016-09-21] MEDS: ceFAZolin 2,000 MG in PREMIX 1 EACH IV SCH ×2 (10:42→18:36)
--- NOTE | 2016-09-21 13:35 | Orthopedic Progress Note ---
Orthopedics - Subjective Interval history: Mr. Sweeney is comfortable. He he states that he feels fine. Cardiology is seeing him and the recommendations are currently pending. Right lower extremity foot and ankle is neurovascularly unchanged. He can perform straight leg raise. Dressing is dry. Plan: Wait for cardiology's recommendations. Otherwise continue per protocol. Exam - Constitutional Vitals: Period Temp Pulse Resp BP Sys/Flores Pulse Ox Last 24 Hr 96.7 F-97.9 F 60-73 14-20 124-181/85-122 93-99 Results - Labs CBC & BMP: 09/11/16 10:18 09/11/16 10:18
[2016-09-21] MEDS ORDERED: METOPROLOL TARTRATE 25 MG TABLET PO SCH (15:42)
--- NOTE | 2016-09-21 17:36 | Cardiology Consult Note ---
Kirk Yoo Lesley, ARNEL, am scribing for, and in the presence of, Kris Zimmerman MD 17:36. Assessment and Plan - Time spent with patient Time spent with patient: Greater than 30 minutes (1) Atrial flutter Status: Acute Assessment and plan: SEE LIST AND PLAN OF CARE BELOW 1. 66-year-old BMI 40.4 WM with history of upper GI bleed earlier this year likely related to NSAIDs, now status post knee replacement surgery this morning incidentally noted to be in atrial flutter presumably new 2. He has no stroke history 3. He is now on Arixtra; after tomorrow with recommend changing to a different agent such as Eliquis 5 mg twice daily for DVT prophylaxis as well as reduction of cardioembolic risk. 4. His chads 2vasc score is only 1, so we may be able to take him off anticoagulation after 3 weeks if his echo looks good on follow-up. 5. Place on low-dose Toprol 25 mg twice daily 6. We will follow with you but he can likely be discharged tomorrow from a cardiac standpoint. 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 Maher ([facility]) PCP: Dr. Spring Mr. Sweeney is a 66 WM, who was admitted for right total knee arthroplasty performed today. Shortly after the incision was made in surgery, patient was noted to be in atrial flutter with a rate in the 70s. We were consulted to see patient regarding this new onset of atrial flutter. The patient is awake and alert in the hospital bed today with his significant other at the bedside. The patient appears comfortable and in no acute distress. The patient denies a history of heart problems. He does not see a court monitor currently. The patient denies any history of heart palpitations, shortness of breath, edema in the extremities, or chest pain. Cardiac risk factors are significant for obesity, age, and sedentary lifestyle. Consider the patient possible has sleep apnea. The patient has a positive family history for CAD in his mother and father, and reports that his father did have bypass surgery later in life. The patient does report a personal history of gastric ulcers with bleeding, he reports he had a previous blood transfusion. Surgical history includes herniorrhaphy, colon resection, carpal tunnel release, and now right TKA. Patient appears to be tolerating this arrhythmia well. His heart rate is now in the 60s, with his most recent blood pressure 138/90. EKG done post operatively today reveals atrial flutter. LEO VASC score of 1, which places the patient is a low risk for stroke. Will start the patient on low dose of metoprolol. Could consider anticoagulation versus a low-dose aspirin once orthopedics feel this is a safe option postoperatively. Labs reviewed today: CBC unremarkable, INR 1.0, PT 10.4, electrolytes WNL, creatinine 0.8, glucose 100, UA negative. Preop chest x-ray shows no acute cardiopulmonary pathology. Preoperative EKG shows sinus bradycardia, rate in the 50s. ASSESSMENT/PLAN: 1. New onset Atrial Flutter -telemetry monitoring, start metoprolol 25 mg daily , continue to monitor vital signs every 4 hours, EKG in a.m., consider adding anticoagulant when okay with Orthopedics. 2. Post right total knee arthroplasty -continue current plan of care. CC: Everardo Carlin Jr., - Home Medications and Allergies Home Medications: Home Medications Medication Instructions Recorded Confirmed Type Multivitamin [Multivitamins] 1 each PO QPM 06/26/16 09/21/16 History [place]-3/Dha/Epa/Fish Oil [Fish Oil 1 each PO QPM 06/26/16 09/21/16 History 1,000 mg Softgel] Ubidecarenone [Co Q-10] 100 mg PO QPM 09/11/16 09/21/16 History Allergies/Adverse Reactions: Allergies Allergy/AdvReac Type Severity Reaction Status Date / Time No Known Allergies Allergy Verified 09/21/16 06:11 - Constitutional Constitutional: Absent: fatigue, frequent falls, weakness - EENT Nose, mouth and throat: Absent: headache(s) - Cardiovascular Cardiovascular: Absent: chest pain at rest, chest pain with activity, diaphoresis, dyspnea, dyspnea on exertion, edema, orthopnea - Respiratory Respiratory: Absent: cough, dyspnea, dyspnea on exertion - Gastrointestinal Gastrointestinal: Absent: abdominal pain, nausea, vomiting - Genitourinary Genitourinary: Absent: difficulty urinating - Musculoskeletal Musculoskeletal: Present: limited range of motion - Neurological Neurological: Absent: confusion, dizziness Medical,Surgical,& Family Hx - Medical History Cardio: No history of: Cardiac Dysrhythmia, Congenital Heart Disease, CHF, CAD, Hypertension, NM Neurology: No history of: Seizures HEENT: History of: Eye Problem (GLASSES), Dental Problems (UPPER DNETURE. MISSING TEETH LOWER) Endocrine: No history of: Diabetes Mellitus (NIDDM) Respiratory: No history of: Asthma, COPD, Respiratory Problems (FLU VAC-YES 2015; PNEU VAC -YES.) Genitourinary: No history of: Bladder Problem Gastrointestinal: History of: Diverticulitis/ Diverticulosis, Gastrointestinal Bleed (JUNE 2016. BLEEDING ULCERS. BLOOD TRANSFUSION), Polyps (REMOVED.) Musculoskeletal: History of: Musculoskeletal Problems (ARTHRITIS KNEES AND HANDS.) No history of: Amputation - Surgical History Cardiac Surgeries: Patient Denies: Cardiac Catheterization, Cardiac Surgery Thoracic Surgeries: Patient denies;: Lobectomy Abdominal Surgeries: Surgical HX of: Abdominal Surgery (EXP LAP COLON RESECTION 2007?), Cholecystectomy (13in small in), Colonoscopy, EGD, Hernia Repair Reproductive Surgeries: Patient denies;: Genitourinary Surgery Orthopedic Surgeries: Surgical HX of;: Orthopedic Surgery (NORMA CARPAL TUNELL), Total Knee Replacement (RIGHT 09/21) - Family History Family History: Reports;: Family Cancer, Family Diabetes (mother and father), Family Heart Disease, Family Hypertension ("everybody"), Family Stroke - Social History Smoking Status: Never smoker Frequency of Alcohol Use: None Type of Drug Use: None Functional capacity: independent ambulation Physical Examination Vital Signs Temp Pulse Resp BP Pulse Ox 97.9 F 73 20 181/122 96 09/21/16 06:24 09/21/16 06:24 09/21/16 06:24 09/21/16 06:24 09/21/16 06:24 Exam: General: [Appears well with no apparent distress.] [Pleasant and cooperative. ] [Appears comfortable.] HEENT: [PERRL, normocephalic, atraumatic]. [Mucous membranes moist.] [No jaundice noted.] [Conjunctiva moist and clear, sclerae anicteric.] Neck: [No JVD/HJR, no thyromegaly or lymphadenopathy noted.] [ No carotid bruit appreciated.] Cardiac: [Irregular rate and rhythm.] [No murmur rub or gallop.] [PMI is nondisplaced.] Lungs: [Clear to auscultation without accessory muscle use to assist the respiratory pattern.] [No oxygen required] Abdomen: [Soft, bowel sounds normoactive.] [Nontender and nondistended.] [No abdominal bruit or thrill noted.] [No masses noted.] Musculoskeletal: [No fluid collection.] [Decreased range of motion is noted to right knee.] Extremities: [No clubbing, cyanosis noted.] [ No edema noted.] [Upper extremity pulses 2+.] [Left lower extremity pulses 2+, dressing intact right lower extremity.] [Capillary refill less than 3 seconds.] Skin: [No unusual lesions or rashes.] [No skin breakdown appreciated.] Neuro: [Awake, alert and oriented 3.] [Moves all extremities without hemiparesis or paralysis.] [No essential tremor is appreciated.] General: Present: Appears Well, No Apparent Distress Neck: Present: Supple Neck, No JVD/HJR Cardiac: Present: Reg Rate and Rhythm. Absent: Diastolic Murmur, Gallop Lungs: Present: No Wheeze, Rales, Rhonchi Neuro: Absent: Resting Tremor, Essential Tremor Abdomen: Present: Soft, Non-Tender Extremities: Present: No Edema Result/EKG - Labs CBC & BMP: 09/11/16 10:18 09/11/16 10:18 Lab Results: I have reviewed the past 24 hour labs Labs: Laboratory Results - last 24 hr 09/21/16 06:13 Blood Type O POSITIVE Antibody Screen Negative - Diagnostic Findings Procedure: Chest x-ray: report reviewed by me - EKG EKG results: interpreted by me (Atrial flutter) Erasmo Yoo Randall Scott, MD, personally performed the services described in this documentation, ascribed by Jazzy Bradley NP in my presence, and it is both accurate and complete 736 .
[2016-09-21] MEDS: METOPROLOL SUCCINATE XL 25 MG TABLET PO SCH (21:26)
[2016-09-22] MEDS ORDERED: FONDAPARINUX 2.5 MG/0.5 ML SYRINGE SUBCUT SCH (01:32)
[2016-09-22] MEDS: KETOROLAC 30 MG/1 ML VIAL IV SCH (01:40)
[2016-09-22] MEDS: ACETAMINOPHEN 500 MG TABLET PO SCH (05:24)
[2016-09-22 05:38] LABS: Basophils % 0.5 % (0.0-0.8); Eosinophils # 0.3 10*3/uL (0.0-0.87); Eosinophils % 3.7 % (0.00-10.9); Hematocrit 38.8 VOL% (42.0-52.0); Immature Granulocytes % 0.2 %; Immature Granulocytes Absolute 0.02 #; Lymphocytes # 1.4 10*3/uL (1.4-4.0); Lymphocytes % 16.5 % (21.2-54.2); Mean Corpuscular HGB Conc 33.5 GM/DL (32-36); Mean Corpuscular Hemoglobin 31 PG (27-34); Mean Corpuscular Volume 93.7 FL (87-102); Mean Platelet Volume 10.3 FL (9.6-12.0); Monocytes # 0.9 10*3/uL (0.11-0.8); Monocytes % 10.8 % (1.7-12.7); Neutrophils # 5.7 10*3/uL (1.4-7.4); Neutrophils % 68.3 % (38.7-73.9); Platelet Count 144 T/CUMM (130-400); Red Blood Count 4.14 MC/CUMM (3.8-5.5); Red Cell Distribution Width 13.6 % (9.3-17.3); White Blood Count 8.3 T/CUMM (4-12)
[2016-09-22 06:12] LABS: Calcium 8.3 MG/DL (8.5-10.1); Osmolality,Calculated 279.3 MOS/KG (273-304); Potassium 4.2 MMOL/L (3.5-5.1)
[2016-09-22 06:49] LABS: Free T4 (Free Thyroxine) 1.07 NG/DL (0.76-1.46); Thyroid Stimulating Hormone 1.08 uIU/ml (0.358-3.74)
[2016-09-22] MEDS: LACTATED RINGERS 1,000 ML IV SCH (07:08)
--- NOTE | 2016-09-22 07:08 | EKG Report ---
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
[2016-09-22] MEDS: METOPROLOL SUCCINATE XL 25 MG TABLET PO SCH ×2 (08:09→20:17)
[2016-09-22] MEDS: MULTIVITAMIN (CENTRUM) TABLET PO SCH (08:09)
[2016-09-22] MEDS: DOCUSATE SODIUM 100 MG CAPSULE PO SCH ×2 (08:09→20:17)
--- NOTE | 2016-09-22 08:25 | Orthopedic Progress Note ---
Orthopedics - Subjective Interval history: Mr. Sweeney is comfortable today. He was able to work with physical therapy yesterday afternoon. Dr. Zimmerman has seen him and is made recommendations. His dressing is clean, dry and intact. Right lower extremities neurovascular change. He can perform straight leg raise. Impression: Status post right total knee replacement. #2 atrial flutter Plan: I am going to switch him to Eliquis 2.5 mg while he is in the hospital. When he is discharged we will increase his dose to Eliquis 5 mg twice daily. We will plan discharge home tomorrow. Discharge instructions were reviewed. Exam - Constitutional Vitals: Period Temp Pulse Resp BP Sys/Flores Pulse Ox Last 24 Hr 96.7 F-99.6 F 60-79 14-20 124-159/67-109 93-100 Results - Labs CBC & BMP: 09/22/16 04:13 09/22/16 04:13
--- NOTE | 2016-09-22 08:36 | Discharge Summary ---
<Geoffrey Crump - Last Filed: 09/23/16 08:44> Hospital Course - Hospital Course Hospital Course: Leo Sweeney was admitted after undergoing a right total knee replacement. The patient went into atrial flutter shortly after the initiation of surgery. Cardiology was consulted. He was switched to Eliquis. He received antimicrobial prophylaxis and physical therapy. He was discharged home in stable condition. Diagnosis - Discharge Diagnosis (1) Status post left knee replacement Status: Acute Specialty Discharge - Follow Up or Referrals Follow up with: Everardo Carlin Jr., MD [Physician] - 10/03/16 2:40 pm Kris Zimmerman MD [Physician] - 10/20/16 7:40 am (follow-up with me in 3-4 weeks with echocardiogram new atrial flutter, ekg flp, cmp, cbc, magnesium lab work and echo to be done on oct.12 at 9:[address] Zimmerman office.) Discharge Plan - Discharge Data Disposition: Disch To Home/Self Care - Discharge Medications New HYDROcodone/ACETAMIN 7.5-325 [[place] 7.5-325] 2 tablet PO Q4H PRN tablet PRN Reason: Moderate Pain unrelieved by 1 HYDROcodone/ACETAMIN 7.5-325 [[place] 7.5-325] 1 tablet PO Q4H PRN tablet PRN Reason: Pain Moderate (4-7) Continue Multivitamin [Multivitamins] 1 each PO QPM [place]-3/Dha/Epa/Fish Oil [Fish Oil 1,000 mg Softgel] 1 each PO QPM Ubidecarenone [Co Q-10] 100 mg PO QPM - Follow Up or Referral Follow Up: Everardo Carlin Jr., MD [Physician] - 10/03/16 2:40 pm Kris Zimmerman MD [Physician] - 10/20/16 7:40 am (follow-up with me in 3-4 weeks with echocardiogram new atrial flutter, ekg flp, cmp, cbc, magnesium lab work and echo to be done on oct.12 at 9:[address] Zimmerman office.) - Forms/Instructions Instructions: Total Knee Replacement (DC) Exam - Constitutional Vitals: Period Temp Pulse Resp BP Sys/Flores Pulse Ox Last 24 Hr 97.9 F-100.2 F 60-111 16-20 137-169/79-99 93-96 Discharge Results Procedures and tests throughout hospitalization: Pending Orders 09/24/16 04:00 Comp Blood Count Auto Diff IN AM Labs on day of discharge: Labs from last 24 hours 09/23/16 02:41 WBC 10.6 RBC 4.08 Hgb 12.9 L Hct 38.1 L MCV 93.4 MCH 32 MCHC 33.9 RDW 13.7 Plt Count 150 MPV 10.6 Neut % (Auto) 70.2 Lymph % (Auto) 13.2 L P[place] % (Auto) 9.1 Eos % (Auto) 6.2 Baso % (Auto) 0.5 Neut # (Auto) 7.4 Lymph # (Auto) 1.4 Pike # (Auto) 1.0 H Eos # (Auto) 0.7 Baso # (Auto) 0.1 Immature Gran % 0.8 Nucleated RBC % 0.0 Immature Gran # 0.08 Nucleated RBCs # 0.00 Immature Plt Fraction 0.0 DS: Provider Date of admission: 09/21/16 05:30 Primary care physician: Booker Spring MD Attending physician on admission: Everardo Carlin Jr., Consults: 09/21/16 07:31 Consult to Case Mgmt/Social Srvs [CONS] Routine Reason for Case Mgmt/Social Srvs: Rehab Home Health Equipment Consult Comment: Deliver CPM machine to Pt's room 325 today, being D/C'd tomorrow home. Consult to Occupational Therapy [CONS] Routine Reason for Occupational Therapy: Evaluate and Treat Consult Comment: ADL's Consult to Physical Therapy [CONS] Routine Reason for Physical Therapy: Evaluate and Treat Gait Training Start Therapy: Today 09/21/16 08:50 Consult to Physician [CONS] Routine Comment: new onsent a fib, intraoperative Consulting Provider: Cardiology - [facility] Consulting Provider Notified: Yes When should Consulting Provider be notified: Now Consult to Specialist Group: Cardiology When should Consulting Provider be notified: Now Person Notified: waylon bolaños Date Notified: 09/21/16 Time Notified: 10:16 Discharging clinician: Geoffrey Crump DO <Everardo Carlin Jr. - Last Filed: 09/26/16 07:04> Discharge Plan - Discharge Data Discharge Diet: advance to your usual diet Hygiene: may shower Weight Bearing at Discharge: weight bear as tolerated Driving: not until seen by doctor - Forms/Instructions Additional Discharge Instructions: Daily dry dressing changes. Weightbearing as tolerated. CPM for 3 weeks. Arrange walker and bedside commode for home use. Wear MATHEUS hose for 1 month. Set up outpatient physical therapy at [facility] 3 times a week for 4 weeks. Follow-up appointment in 10-14 days. DS: Provider Expected date of discharge: 09/23/16
--- NOTE | 2016-09-22 10:24 | Cardiology Progress Note ---
Assessment and Plan (1) Atrial flutter Status: Acute Assessment and plan: SEE LIST AND PLAN OF CARE BELOW 1. 66-year-old BMI 40.4 WM with history of upper GI bleed earlier this year likely related to NSAIDs, now status post knee replacement surgery this morning incidentally noted to be in atrial flutter presumably new 2. He has no stroke history 3. He is now on Arixtra; after tomorrow with recommend changing to a different agent such as Eliquis 5 mg twice daily for DVT prophylaxis as well as reduction of cardioembolic risk. 4. His chads 2vasc score is only 1, so we may be able to take him off anticoagulation after 3 weeks if his echo looks good on follow-up. 5. Place on low-dose Toprol 25 mg twice daily 6. We will follow with you but he can likely be discharged tomorrow from a cardiac standpoint. September 22, 2016: 1. Atrial flutter persists this morning with controlled rate and is asymptomatic 2. I agree with transitioning to Eliquis to reduce his DVT and cardioembolic risk. 3. Follow-up in clinic in 3 weeks with echocardiogram; if he has no structural heart disease will consider changing him to baby aspirin daily. 4. Modest drop in hematocrit still in the mid 30s, likely related to surgery and some delusional effect. He has no overt bleeding. 5. Continue Toprol to promote sinus rhythm and avoid tachycardia. 6. He can be discharged from a cardiac standpoint. Current Visit: Yes (2) Status post left knee replacement Status: Acute Assessment and plan: SEE PLAN OF CARE LISTED BELOW Current Visit: Yes Cardiology - PN: Subj Interval history: Mr. Sweeney is feeling well without complaint. Is having no chest discomfort palpitations or shortness of breath. He has had no dizziness. Exam (Progress Note) - Constitutional Vitals: Period Temp Pulse Resp BP Sys/Flores Pulse Ox Last 24 Hr 96.7 F-99.6 F 61-79 17-20 126-159/67-91 94-100 General appearance: no acute distress, over weight - Head Head exam: Present: normal inspection, normocephalic, atraumatic - Neck Neck exam: Present: normal inspection - Respiratory Respiratory exam: Present: clear to auscultation bilaterally. Absent: stridor, wheezes - Cardiovascular Cardiovascular exam: Present: regular rate and rhythm. Absent: diastolic murmur , rubs - GI/Abdominal GI/Abdominal exam: Present: soft. Absent: tenderness - Extremities Exam Extremities exam: Absent: edema Result/EKG - Labs CBC & BMP: 09/22/16 04:13 09/22/16 04:13 Labs: Laboratory Results - last 24 hr 09/22/16 09/22/16 09/22/16 04:13 04:13 04:13 WBC 8.3 RBC 4.14 Hgb 13.0 L Hct 38.8 L MCV 93.7 MCH 31 MCHC 33.5 RDW 13.6 Plt Count 144 MPV 10.3 Neut % (Auto) 68.3 Lymph % (Auto) 16.5 L Brooke % (Auto) 10.8 Eos % (Auto) 3.7 Baso % (Auto) 0.5 Neut # (Auto) 5.7 Lymph # (Auto) 1.4 Brooke # (Auto) 0.9 H Eos # (Auto) 0.3 Baso # (Auto) 0.0 Immature Gran % 0.2 Nucleated RBC % 0.0 Immature Gran # 0.02 Nucleated RBCs # 0.00 Immature Plt Fraction 0.0 Sodium 141 Potassium 4.2 Chloride 105 Carbon Dioxide 29 Anion Gap 11.2 BUN 10 Creatinine 0.90 GFR Calculation 126 BUN/Creatinine Ratio 11.00 Glucose 99 Calculated Osmolality 279.3 Calcium 8.3 L Magnesium Free T4 1.07 TSH 3rd Generation 1.080 09/22/16 04:13 WBC RBC Hgb Hct MCV MCH MCHC RDW Plt Count MPV Neut % (Auto) Lymph % (Auto) Brooke % (Auto) Eos % (Auto) Baso % (Auto) Neut # (Auto) Lymph # (Auto) Brooke # (Auto) Eos # (Auto) Baso # (Auto) Immature Gran % Nucleated RBC % Immature Gran # Nucleated RBCs # Immature Plt Fraction Sodium Potassium Chloride Carbon Dioxide Anion Gap BUN Creatinine GFR Calculation BUN/Creatinine Ratio Glucose Calculated Osmolality Calcium Magnesium 2.2 Free T4 TSH 3rd Generation Specialty Discharge - Follow Up or Referrals Follow up with: Everardo Carlin Jr., MD [Physician] - 1 Month (Follow-up with me in 3-4 weeks with echocardiogram "new atrial flutter", EKG FLP CMP CBC magnesium)
--- NOTE | 2016-09-22 19:17 | Pathology Report from [facility] ---
[facility] ACCESSION # : [id number] PATIENT NAME : Leo Hsu ORDERING DR : MARIEL AVILA MD CLINICAL HX: Right knee osteoarthritis POST-OP DX: Same SPECIMEN INFO: Right knee bone and tissue GROSS DESCRIPTION: The specimen is received in formalin labeled with the patients name and consists of multiple fragments of bone, cartilage and soft tissue collectively measuring 13.5 x 19.0 cm. The articular surfaces are focally degenerative with areas of bony eburnation measuring up to 2.9 cm. Accounting Consultant tissue submitted in one cassette. DIAGNOSIS FOR LEO HSU: RIGHT KNEE BONE AND TISSUE, TOTAL REPLACEMENT: Osteoarthritis. COLLECTED DATE: 09/21/2016 [facility] REPORT DATE: 09/22/2016 ELECTRONICALLY SIGNED BY: Erika Curtis M.D. 09/22/2016 - 10:26:00 [facility] CENTERWilberto
[2016-09-22] MEDS: APIXABAN 2.5 MG TABLET PO SCH (20:17)
[2016-09-23 03:05] LABS: Basophils # 0.1 10*3/uL (0.0-0.2); Basophils % 0.5 % (0.0-0.8); Eosinophils # 0.7 10*3/uL (0.0-0.87); Eosinophils % 6.2 % (0.00-10.9); Hematocrit 38.1 VOL% (42.0-52.0); Hemoglobin 12.9 GM/DL (14.0-18.0); Immature Granulocytes % 0.8 %; Immature Granulocytes Absolute 0.08 #; Lymphocytes # 1.4 10*3/uL (1.4-4.0); Lymphocytes % 13.2 % (21.2-54.2); Mean Corpuscular HGB Conc 33.9 GM/DL (32-36); Mean Corpuscular Hemoglobin 32 PG (27-34); Mean Corpuscular Volume 93.4 FL (87-102); Mean Platelet Volume 10.6 FL (9.6-12.0); Monocytes % 9.1 % (1.7-12.7); Neutrophils # 7.4 10*3/uL (1.4-7.4); Neutrophils % 70.2 % (38.7-73.9); Platelet Count 150 T/CUMM (130-400); Red Blood Count 4.08 MC/CUMM (3.8-5.5); Red Cell Distribution Width 13.7 % (9.3-17.3); White Blood Count 10.6 T/CUMM (4-12)
[2016-09-23 07:47] VITALS: BP 169/99
[2016-09-23] MEDS: DOCUSATE SODIUM 100 MG CAPSULE PO SCH (08:00)
[2016-09-23] MEDS: APIXABAN 2.5 MG TABLET PO SCH (08:00)
[2016-09-23] MEDS: MULTIVITAMIN (CENTRUM) TABLET PO SCH (08:00)
[2016-09-23] MEDS: METOPROLOL SUCCINATE XL 25 MG TABLET PO SCH (08:00)
--- NOTE | 2016-09-23 08:30 | EKG Report ---
Stationary ECG Study [facility] Test Date: 09/23/2016 8:29 AM Pat Name: AGNES HSU Department: Room: 325 Gender: M Poiser Balance: FRED : 1950 Requested by: Kris Church Order Number: [id number] Reading MD: TAMMI ROACH Intervals [place] Rate: 116 P: 999 CA: 0 QRS: 64 QRSD: 90 T: 49 QT: 324 QTc: 393 Interpretive Statements ATRIAL FLUTTER/TACHYCARDIA WITH RAPID VENTRICULAR RESPONSE SEPTAL MYOCARDIAL INFARCTION, OF INDETERMINATE AGE ST DEPRESSION, CONSIDER SUBENDOCARDIAL INJURY Electronically Signed On 09-23-16 11:33:39 CDT by TAMMI ROACH [email or web address]
--- NOTE | 2016-09-23 08:39 | Orthopedic Progress Note ---
Assessment and Plan (1) Status post left knee replacement Status: Acute Assessment and plan: Discussed postop knee precautions and DVT prophylaxis. Okay to discharge home when all arrangements are made. Follow-up with Dr. Carlin as scheduled Current Visit: Yes Orthopedics - Subjective Interval history: Patient seen and examined. He ambulated well with physical therapy today. He states that he is ready and willing and requesting to be discharged. Denies any numbness or tingling. Denies any other complaints. Exam - Constitutional Vitals: Period Temp Pulse Resp BP Sys/Flores Pulse Ox Last 24 Hr 97.9 F-100.2 F 60-111 16-20 137-169/79-99 93-96 - Extremities Exam Extremities exam: Present: normal inspection (LLE: dressing c/d/i, comp soft, sensation intact, full AROM foot/ankle. ) Results - Labs CBC & BMP: 09/23/16 02:41 09/22/16 04:13 Lab Results: I have reviewed the past 24 hour labs - Diagnostic Findings Procedure: X-ray: image reviewed by me, report reviewed by me Specialty Discharge - Follow Up or Referrals Follow up with: Everardo Carlin Jr., MD [Physician] - 10/03/16 2:40 pm Kris Zimmerman MD [Physician] - 10/20/16 7:40 am (follow-up with me in 3-4 weeks with echocardiogram new atrial flutter, ekg flp, cmp, cbc, magnesium lab work and echo to be done on oct.12 at 9:[address] Zimmerman office.)
== END 2016-09-23 11:30 | disposition home or self-care (01) | DRG 470 ==
LOC: N.SDSINP 05:30 → N.3E 09:12
PROVIDERS: ADMIT Orthopaedic Surgery; ATTEND Orthopaedic Surgery

== ENCOUNTER 2018-12-07 18:28 | Inpatient (IN) ==
[2018-12-07] MEDS ORDERED: ONDANSETRON 4 MG/2 ML VIAL ONE (18:43)
[2018-12-07] MEDS ORDERED: MORPHINE 4 MG/1 ML VIAL IV ONE (18:43)
[2018-12-07] MEDS ORDERED: SODIUM CHLORIDE 0.9% 1,000 ML IV STA ×2 (18:43→21:12)
[2018-12-07] MEDS ORDERED: ONDANSETRON 4 MG/2 ML VIAL IV ONE (18:43)
[2018-12-07] MEDS ORDERED: MORPHINE 4 MG/1 ML VIAL ONE (18:44)
[2018-12-07 19:00] LABS: Basophils % 0.5 % (0.0-0.8); Eosinophils # 0.1 10*3/uL (0.0-0.87); Eosinophils % 1.2 % (0.00-10.9); Hematocrit 46.4 VOL% (42.0-52.0); Hemoglobin 15.6 GM/DL (14.0-18.0); Immature Granulocytes % 0.7 %; Immature Granulocytes Absolute 0.03 #; Lymphocytes # 1.1 10*3/uL (1.4-4.0); Lymphocytes % 26.2 % (21.2-54.2); Mean Corpuscular HGB Conc 33.6 GM/DL (32-36); Mean Corpuscular Volume 98.1 FL (87-102); Monocytes % 1.2 % (1.7-12.7); Neutrophils % 70.2 % (38.7-73.9); Platelet Count 140 T/CUMM (130-400); Red Blood Count 4.73 MC/CUMM (3.8-5.5); Red Cell Distribution Width 12.9 % (9.3-17.3); White Blood Count 4.2 T/CUMM (4-12)
[2018-12-07 19:06] LABS: Alanine Aminotransferase 57 U/L (16-61); Albumin 4.1 G/DL (3.4-5.0); Alkaline Phosphatase 79 U/L (45-117); Aspartate Amino Transferase 25 U/L (0-37); Blood Urea Nitrogen 12 MG/DL (7-18); Calcium 9.6 MG/DL (8.5-10.1); Estimated Glom Filtration Rate 94 ML/MIN; Glucose 123 MG/DL (74-106); Osmolality,Calculated 275.7 MOS/KG (273-304); Total Protein 8.1 G/DL (6.4-8.3); Troponin I < 0.015 NG/ML (0.00-0.045)
[2018-12-07 19:07] LABS: PT Patient Result 10.4 SECS (9.6-12.2)
[2018-12-07 19:51] LABS: Lymphocytes 29 % (20-55); Ovalocytes Slight; Platelet Estimate Adequate; Segmented Neutrophils 70 % (50-85); Total Cells Counted 100
[2018-12-07] MEDS ORDERED: ACETAMINOPHEN 325 MG TABLET PO ONE (20:31)
[2018-12-07] MEDS ORDERED: HYDROmorphone 2 MG/1 ML VIAL IV STA (20:56)
[2018-12-07] MEDS ORDERED: PIPERACILLIN/TAZOBACTAM 3,375 MG in SODIUM CHLORIDE 0.9% 100 ML IV STA (20:56)
[2018-12-07] MEDS ORDERED: HYDROmorphone 2 MG/1 ML VIAL ONE (20:57)
[2018-12-07] MEDS ORDERED: HYDROmorphone 2 MG/1 ML VIAL IV PRN (20:57)
[2018-12-07] MEDS ORDERED: ONDANSETRON 4 MG/2 ML VIAL IV PRN (20:57)
[2018-12-07] MEDS ORDERED: PROMETHAZINE 25 MG/1 ML VIAL IM PRN (20:57)
[2018-12-07] MEDS ORDERED: ACETAMINOPHEN 325 MG TABLET PO PRN (20:57)
[2018-12-07 21:24] LABS: Apearance,Urine CLEAR (Clear); Bilirubin,Urine Negative (Negative); Blood, Urine Small mg/dL (Negative); Glucose,Urine (UA) Negative (Negative); Ketones,Urine Negative (Negative); Mucus,Urine Occasional /LPF (Occasional); Nitrite,Urine Negative (Negative); Protein,Urine Negative; RBC,Urine 5 /HPF (0-4); Squamous Epithelial Cell,Urine Occasional /HPF (0-10); Urine Color Yellow (Yellow); Urine Specific Gravity 1.051 (1.001-1.035); Urine Urobilinogen < 2.0 EU/DL (0.2-1.0); WBC,Urine 1 /HPF (0-6)
[2018-12-07] MEDS: SODIUM CHLORIDE 0.45% 1,000 ML IV SCH (21:47)
[2018-12-08] MEDS: SODIUM CHLORIDE 0.45% 1,000 ML IV SCH ×3 (01:01→10:25)
[2018-12-08 01:16] LABS: Platelet Count 95 T/CUMM (130-400)
[2018-12-08 01:52] LABS: Albumin 3.3 G/DL (3.4-5.0); Bilirubin,Total 0.9 MG/DL (0.2-1.0); Calcium 8.2 MG/DL (8.5-10.1); Osmolality,Calculated 284.3 MOS/KG (273-304); Total Protein 6.2 G/DL (6.4-8.3)
[2018-12-08 02:06] LABS: Basophils % 0.2 % (0.0-0.8); Hematocrit 40.3 VOL% (42.0-52.0); Hemoglobin 13.6 GM/DL (14.0-18.0); Immature Granulocytes % 0.8 %; Immature Granulocytes Absolute 0.14 #; Lymphocytes # 0.3 10*3/uL (1.4-4.0); Lymphocytes % 1.7 % (21.2-54.2); Mean Corpuscular HGB Conc 33.7 GM/DL (32-36); Mean Corpuscular Volume 98.8 FL (87-102); Mean Platelet Volume 10.6 FL (9.6-12.0); Monocytes % 1.2 % (1.7-12.7); Neutrophils % 96.1 % (38.7-73.9); Red Blood Count 4.08 MC/CUMM (3.8-5.5); Red Cell Distribution Width 13.4 % (9.3-17.3); White Blood Count 17.7 T/CUMM (4-12)
[2018-12-08 02:20] LABS: Band Neutrophils 13 % (0-10); Lymphocytes 2 % (20-55); Platelet Estimate Decreased; Segmented Neutrophils 84 % (50-85); Total Cells Counted 100
[2018-12-08] MEDS: PIPERACILLIN/TAZOBACTAM 3,375 MG in SODIUM CHLORIDE 0.9% 100 ML IV SCH ×3 (05:45→22:09)
[2018-12-08] MEDS ORDERED: LACTATED RINGERS 500 ML IV ONE (06:54)
[2018-12-08] MEDS ORDERED: diphenhydrAMINE 50 MG/1 ML VIAL IV PRN (07:01)
[2018-12-08] MEDS ORDERED: PROMETHAZINE INJ 25 MG in SODIUM CHLORIDE 0.9% 50 ML IV PRN (07:01)
[2018-12-08] MEDS ORDERED: ONDANSETRON 4 MG/2 ML VIAL IV PRN (07:01)
[2018-12-08] MEDS ORDERED: SODIUM CHLORIDE 0.9% 1,000 ML IV PRN (07:29)
[2018-12-08] MEDS ORDERED: TISSUE ADHESIVE 1 EACH APPLICATOR TOP ONE (08:27)
[2018-12-08] MEDS: PANTOPRAZOLE 40 MG TABLET PO SCH (08:44)
[2018-12-08] MEDS ORDERED: PROTHROMBIN COMPLEX IV ONE (09:00)
[2018-12-08] MEDS ORDERED: ceFAZolin 1,000 MG VIAL ONE (09:16)
[2018-12-08] MEDS ORDERED: PROMETHAZINE 25 MG/1 ML VIAL ONE (10:09)
[2018-12-08] MEDS ORDERED: MEPERIDINE 25 MG/1 ML VIAL ONE ×2 (10:09→10:17)
[2018-12-08] MEDS ORDERED: ONDANSETRON 4 MG/2 ML VIAL ONE ×2 (10:09→15:10)
[2018-12-08] MEDS: MEPERIDINE 25 MG/1 ML VIAL IV PRN ×2 (10:15→10:25)
[2018-12-08] MEDS: LACTATED RINGERS 1,000 ML IV SCH (14:37)
[2018-12-08] MEDS ORDERED: LIDOCAINE 2% 5 ML VIAL ONE (15:10)
[2018-12-08] MEDS ORDERED: SEVOFLURANE 1 UNIT/15 MINUTE INH ONE (15:10)
[2018-12-08] MEDS ORDERED: SUCCINYLCHOLINE 200 MG/10 ML VIAL ONE (15:10)
[2018-12-08] MEDS ORDERED: PHENYLEPHRINE 10 MG/1 ML VIAL IV ONE (15:10)
[2018-12-08] MEDS ORDERED: ROCURONIUM 100 MG/10 ML VIAL IV ONE (15:10)
[2018-12-08] MEDS ORDERED: LACTATED RINGERS 1,000 ML IV ONE (15:10)
[2018-12-08] MEDS ORDERED: PROPOFOL 200 MG/20 ML VIAL IV ONE (15:10)
[2018-12-08] MEDS ORDERED: DEXAMETHASONE 4 MG/1 ML VIAL ONE (15:10)
[2018-12-08] MEDS ORDERED: SODIUM CHLORIDE 0.9% 250 ML IV ONE (15:10)
[2018-12-08] MEDS ORDERED: fentaNYL 100 MCG/2 ML VIAL ONE (15:11)
[2018-12-08] MEDS: TAMSULOSIN 0.4 MG CAPSULE PO SCH (20:58)
[2018-12-08] MEDS: carvediloL 3.125 MG TABLET PO SCH (20:58)
[2018-12-09] MEDS: LACTATED RINGERS 1,000 ML IV SCH ×2 (03:12→09:35)
[2018-12-09 05:03] LABS: Basophils # 0.1 10*3/uL (0.0-0.2); Basophils % 0.2 % (0.0-0.8); Hematocrit 39.5 VOL% (42.0-52.0); Immature Granulocytes Absolute 1.38 #; Lymphocytes # 0.9 10*3/uL (1.4-4.0); Lymphocytes % 3.4 % (21.2-54.2); Mean Corpuscular HGB Conc 32.9 GM/DL (32-36); Mean Corpuscular Volume 100.5 FL (87-102); Mean Platelet Volume 10.5 FL (9.6-12.0); Monocytes % 4.5 % (1.7-12.7); Neutrophils % 86.9 % (38.7-73.9); Red Blood Count 3.93 MC/CUMM (3.8-5.5); Red Cell Distribution Width 14.1 % (9.3-17.3); White Blood Count 27.4 T/CUMM (4-12)
[2018-12-09 05:08] LABS: Platelet Count 84 T/CUMM (130-400)
[2018-12-09 05:30] LABS: Calcium 8.7 MG/DL (8.5-10.1); Osmolality,Calculated 277.7 MOS/KG (273-304)
[2018-12-09 05:34] LABS: Band Neutrophils 6 % (0-10); Hypochromasia 1+; Lymphocytes 2 % (20-55); Platelet Estimate Decreased; Segmented Neutrophils 89 % (50-85); Total Cells Counted 100
[2018-12-09] MEDS: PIPERACILLIN/TAZOBACTAM 3,375 MG in SODIUM CHLORIDE 0.9% 100 ML IV SCH ×2 (06:06→18:09)
[2018-12-09] MEDS: amLODIPine 5 MG TABLET PO SCH (09:46)
[2018-12-09] MEDS: PANTOPRAZOLE 40 MG TABLET PO SCH (09:47)
[2018-12-09] MEDS: carvediloL 3.125 MG TABLET PO SCH ×2 (09:48→20:44)
[2018-12-09 11:00] LABS: Basophils # 0.1 10*3/uL (0.0-0.2); Basophils % 0.3 % (0.0-0.8); Eosinophils % 0.1 % (0.00-10.9); Hematocrit 39.6 VOL% (42.0-52.0); Hemoglobin 13.2 GM/DL (14.0-18.0); Immature Granulocytes % 5.2 %; Immature Granulocytes Absolute 1.38 #; Lymphocytes % 3.8 % (21.2-54.2); Mean Corpuscular HGB Conc 33.3 GM/DL (32-36); Mean Platelet Volume 10.7 FL (9.6-12.0); Neutrophils % 86.6 % (38.7-73.9); Platelet Count 92 T/CUMM (130-400); Red Blood Count 3.96 MC/CUMM (3.8-5.5); Red Cell Distribution Width 13.9 % (9.3-17.3); White Blood Count 26.7 T/CUMM (4-12)
[2018-12-09 11:18] LABS: Band Neutrophils 4 % (0-10); Hypochromasia Slight; Lymphocytes 5 % (20-55); Platelet Estimate Decreased; Segmented Neutrophils 88 % (50-85); Total Cells Counted 100
[2018-12-09] MEDS ORDERED: INFLUENZA VIRUS VACCINE 0.5 ML SYRINGE IM ONE (12:00)
[2018-12-09] MEDS: VANCOMYCIN INJ 1,750 MG in SODIUM CHLORIDE 0.9% 500 ML IV SCH (12:50)
[2018-12-09] MEDS: OMEGA 3 ACID ETHYL ESTERS 1 GM CAPSULE PO SCH (20:43)
[2018-12-09] MEDS: MAGNESIUM OXIDE 400 MG TABLET PO SCH (20:43)
[2018-12-09] MEDS: TAMSULOSIN 0.4 MG CAPSULE PO SCH (20:43)
[2018-12-10] MEDS: VANCOMYCIN INJ 1,750 MG in SODIUM CHLORIDE 0.9% 500 ML IV SCH ×2 (00:08→14:51)
[2018-12-10] MEDS: PIPERACILLIN/TAZOBACTAM 3,375 MG in SODIUM CHLORIDE 0.9% 100 ML IV SCH ×2 (02:10→10:49)
[2018-12-10 05:23] LABS: Basophils % 0.2 % (0.0-0.8); Eosinophils # 0.1 10*3/uL (0.0-0.87); Eosinophils % 0.6 % (0.00-10.9); Hematocrit 38.6 VOL% (42.0-52.0); Hemoglobin 12.8 GM/DL (14.0-18.0); Immature Granulocytes % 5.3 %; Immature Granulocytes Absolute 1.03 #; Lymphocytes # 1.1 10*3/uL (1.4-4.0); Lymphocytes % 5.4 % (21.2-54.2); Mean Corpuscular HGB Conc 33.2 GM/DL (32-36); Mean Corpuscular Volume 98.7 FL (87-102); Mean Platelet Volume 10.8 FL (9.6-12.0); Neutrophils % 84.5 % (38.7-73.9); Platelet Count 86 T/CUMM (130-400); Red Blood Count 3.91 MC/CUMM (3.8-5.5); Red Cell Distribution Width 13.7 % (9.3-17.3); White Blood Count 19.5 T/CUMM (4-12)
[2018-12-10 05:43] LABS: Band Neutrophils 5 % (0-10); Calcium 8.7 MG/DL (8.5-10.1); Eosinophils 2 % (0-10); Hypochromasia 1+; Lymphocytes 5 % (20-55); Osmolality,Calculated 284.1 MOS/KG (273-304); Platelet Estimate Decreased; Segmented Neutrophils 86 % (50-85); Total Cells Counted 100
[2018-12-10] MEDS: carvediloL 3.125 MG TABLET PO SCH ×2 (09:37→21:02)
[2018-12-10] MEDS: COENZYME Q10 100 MG CAPSULE PO SCH (09:37)
[2018-12-10] MEDS: PANTOPRAZOLE 40 MG TABLET PO SCH (09:37)
[2018-12-10] MEDS: amLODIPine 5 MG TABLET PO SCH (09:37)
[2018-12-10] MEDS: CHOLECALCIFEROL 1,000 UNIT TABLET PO SCH (09:37)
[2018-12-10] MEDS: MULTIVITAMIN (CENTRUM) TABLET PO SCH (09:37)
[2018-12-10] MEDS: LEVOFLOXACIN 750 MG TABLET PO SCH (15:04)
[2018-12-10] MEDS: OMEGA 3 ACID ETHYL ESTERS 1 GM CAPSULE PO SCH (21:02)
[2018-12-10] MEDS: TAMSULOSIN 0.4 MG CAPSULE PO SCH (21:02)
[2018-12-10] MEDS: MAGNESIUM OXIDE 400 MG TABLET PO SCH (21:02)
[2018-12-11 05:27] LABS: Basophils % 0.3 % (0.0-0.8); Eosinophils # 0.3 10*3/uL (0.0-0.87); Eosinophils % 2.3 % (0.00-10.9); Hematocrit 38.2 VOL% (42.0-52.0); Hemoglobin 12.7 GM/DL (14.0-18.0); Immature Granulocytes % 1.4 %; Immature Granulocytes Absolute 0.18 #; Lymphocytes # 1.3 10*3/uL (1.4-4.0); Lymphocytes % 10.5 % (21.2-54.2); Mean Corpuscular HGB Conc 33.2 GM/DL (32-36); Mean Corpuscular Volume 98.5 FL (87-102); Mean Platelet Volume 10.5 FL (9.6-12.0); Monocytes % 6.9 % (1.7-12.7); Neutrophils % 78.6 % (38.7-73.9); Platelet Count 105 T/CUMM (130-400); Red Blood Count 3.88 MC/CUMM (3.8-5.5); Red Cell Distribution Width 13.7 % (9.3-17.3); White Blood Count 12.6 T/CUMM (4-12)
[2018-12-11 07:37] VITALS: BP 160/80
[2018-12-11] MEDS: CHOLECALCIFEROL 1,000 UNIT TABLET PO SCH (09:23)
[2018-12-11] MEDS: MULTIVITAMIN (CENTRUM) TABLET PO SCH (09:24)
[2018-12-11] MEDS: PANTOPRAZOLE 40 MG TABLET PO SCH (09:24)
[2018-12-11] MEDS: LEVOFLOXACIN 750 MG TABLET PO SCH (09:24)
[2018-12-11] MEDS: amLODIPine 5 MG TABLET PO SCH (09:24)
[2018-12-11] MEDS: carvediloL 3.125 MG TABLET PO SCH (09:24)
[2018-12-11] MEDS: COENZYME Q10 100 MG CAPSULE PO SCH (09:24)
== END 2018-12-11 11:10 | disposition home or self-care (01) | DRG 339 ==
LOC: N.ED 18:28 → N.EDINP 20:57 → N.3E 21:19
PROVIDERS: ADMIT Student in an Organized Health Care Education/Training Program; ATTEND Student in an Organized Health Care Education/Training Program

== ENCOUNTER 2020-04-03 12:41 | Inpatient (IN) ==
[2020-04-03 14:00] LABS: Basophils % 0.2 % (0.0-0.8); Eosinophils % 0.2 % (0.00-10.9); Hematocrit 44.3 VOL% (42.0-52.0); Hemoglobin 14.9 GM/DL (14.0-18.0); Immature Granulocytes % 0.6 %; Immature Granulocytes Absolute 0.06 #; Lymphocytes # 0.5 10*3/uL (1.4-4.0); Lymphocytes % 4.6 % (21.2-54.2); Mean Corpuscular HGB Conc 33.6 GM/DL (32-36); Mean Corpuscular Volume 98.4 FL (87-102); Mean Platelet Volume 9.8 FL (9.6-12.0); Monocytes % 2.5 % (1.7-12.7); Neutrophils % 91.9 % (38.7-73.9); Platelet Count 163 T/CUMM (130-400); White Blood Count 9.9 T/CUMM (4-12)
[2020-04-03 14:31] LABS: Alanine Aminotransferase 326 U/L (16-61); Albumin 3.7 G/DL (3.4-5.0); Alkaline Phosphatase 476 U/L (45-117); Aspartate Amino Transferase 237 U/L (0-37); Blood Urea Nitrogen 20 MG/DL (7-18); Calcium 9.5 MG/DL (8.5-10.1); Carbon Dioxide 28 MMOL/L (21-32); Estimated Glom Filtration Rate 60 ML/MIN; Glucose 96 MG/DL (74-106); Osmolality,Calculated 275.8 MOS/KG (273-304); Sodium 137 MMOL/L (136-145); Total Protein 8.2 G/DL (6.4-8.3)
[2020-04-03] MEDS ORDERED: SODIUM CHLORIDE 0.9% 1,000 ML IV STA (15:09)
[2020-04-03] MEDS ORDERED: PIPERACILLIN/TAZOBACTAM 3,375 MG in SODIUM CHLORIDE 0.9% 100 ML IV STA (15:09)
[2020-04-03 15:53] LABS: Band Neutrophils 5 % (0-10); Lymphocytes 5 % (20-55); Platelet Estimate Adequate; Segmented Neutrophils 86 % (50-85); Total Cells Counted 100
[2020-04-03 15:54] LABS: Anisocytosis Slight
[2020-04-03] MEDS ORDERED: ALUMINUM/MAGNES/SIMETH MAX STR 30 ML UDCUP PO PRN (17:05)
[2020-04-03] MEDS ORDERED: GLUCAGON 1 MG VIAL IM PRN (17:05)
[2020-04-03] MEDS ORDERED: hydrALAZINE 20 MG/1 ML VIAL IV PRN (17:05)
[2020-04-03] MEDS ORDERED: DEXTROSE 50% 25 GM/50 ML VIAL IV PRN (17:05)
[2020-04-03] MEDS ORDERED: ONDANSETRON 4 MG/2 ML VIAL IV PRN (17:05)
[2020-04-03] MEDS ORDERED: ACETAMINOPHEN 325 MG TABLET PO PRN (17:05)
[2020-04-03] MEDS ORDERED: DOCUSATE SODIUM 100 MG CAPSULE PO PRN (17:05)
[2020-04-03 17:50] LABS: Albumin 3.7 G/DL (3.4-5.0); Bilirubin,Direct 2.4 MG/DL (0.0-0.20); Bilirubin,Indirect 0.8 MG/DL (0.0-1.0); Bilirubin,Total 3.2 MG/DL (0.2-1.0); Total Protein 7.5 G/DL (6.4-8.3)
[2020-04-03 17:58] LABS: Risk Ratio 5.04; Thyroid Stimulating Hormone 4.2 uIU/ml (0.358-3.74); VLDL CHOLESTEROL 24.2 MG/DL
[2020-04-03] MEDS: SODIUM CHLORIDE 0.9% 1,000 ML IV SCH (18:04)
[2020-04-04] MEDS: SODIUM CHLORIDE 0.9% 1,000 ML IV SCH ×2 (06:52→16:04)
[2020-04-04 07:16] LABS: Basophils % 0.2 % (0.0-0.8); Eosinophils # 0.1 10*3/uL (0.0-0.87); Eosinophils % 0.6 % (0.00-10.9); Hematocrit 38.8 VOL% (42.0-52.0); Hemoglobin 12.7 GM/DL (14.0-18.0); Immature Granulocytes % 0.5 %; Immature Granulocytes Absolute 0.07 #; Lymphocytes % 7.4 % (21.2-54.2); Mean Corpuscular HGB Conc 32.7 GM/DL (32-36); Mean Corpuscular Volume 98.7 FL (87-102); Mean Platelet Volume 10.3 FL (9.6-12.0); Monocytes % 7.6 % (1.7-12.7); Neutrophils % 83.7 % (38.7-73.9); Platelet Count 160 T/CUMM (130-400); Red Blood Count 3.93 MC/CUMM (3.8-5.5); Red Cell Distribution Width 13.3 % (9.3-17.3); White Blood Count 13.1 T/CUMM (4-12)
[2020-04-04 07:33] LABS: Albumin 2.9 G/DL (3.4-5.0); Bilirubin,Total 5.1 MG/DL (0.2-1.0); Calcium 8.9 MG/DL (8.5-10.1); Osmolality,Calculated 275.7 MOS/KG (273-304); Potassium 3.8 MMOL/L (3.5-5.1); Total Protein 6.9 G/DL (6.4-8.3)
[2020-04-04] MEDS: PANTOPRAZOLE 40 MG TABLET PO SCH (08:23)
[2020-04-04 09:08] LABS: Free T4 (Free Thyroxine) 1.25 NG/DL (0.76-1.46)
[2020-04-04] MEDS: PIPERACILLIN/TAZOBACTAM 3,375 MG in SODIUM CHLORIDE 0.9% 100 ML IV SCH ×2 (09:29→16:04)
[2020-04-04] MEDS: COENZYME Q10 100 MG CAPSULE PO SCH (09:30)
[2020-04-04] MEDS: LOSARTAN 50 MG TABLET PO SCH (09:30)
[2020-04-04] MEDS: CHOLECALCIFEROL 1,000 UNIT TABLET PO SCH (09:30)
[2020-04-04] MEDS: amLODIPine 5 MG TABLET PO SCH (09:30)
[2020-04-04] MEDS: MULTIVITAMIN (CENTRUM) TABLET PO SCH (09:30)
[2020-04-04] MEDS: carvediloL 3.125 MG TABLET PO SCH ×2 (09:30→20:57)
[2020-04-04 10:05] LABS: Bilirubin,Urine Negative (Negative); Blood, Urine Negative (Negative); Glucose,Urine (UA) Negative (Negative); Ketones,Urine Negative (Negative); Mucus,Urine Occasional /LPF (Occasional); Nitrite,Urine Negative (Negative); Protein,Urine Negative; Urine Appearance CLEAR (Clear); Urine Color Amber (Yellow); Urine Specific Gravity 1.009 (1.001-1.035); WBC,Urine <1 /HPF (0-6)
[2020-04-04 13:44] LABS: Hepatitis B Core IgM Quant < 0.05 Index; Hepatitis B Surface Ag Quant < 0.10 Index; Hepatitis B Surface Ag Result Non-Reactive (NonReactive); Hepatitis C Virus Ab Quant 0.05 Index; Hepatitis C Virus Ab Result Non-Reactive (NonReactive)
[2020-04-04] MEDS: OMEGA 3 ACID ETHYL ESTERS 1 GM CAPSULE PO SCH (20:57)
[2020-04-04] MEDS: APIXABAN 5 MG TABLET PO SCH (20:57)
[2020-04-04] MEDS: TAMSULOSIN 0.4 MG CAPSULE PO SCH (20:58)
[2020-04-05] MEDS: PIPERACILLIN/TAZOBACTAM 3,375 MG in SODIUM CHLORIDE 0.9% 100 ML IV SCH ×3 (00:15→16:44)
[2020-04-05 04:38] LABS: Basophils % 0.3 % (0.0-0.8); Eosinophils # 0.3 10*3/uL (0.0-0.87); Eosinophils % 3.4 % (0.00-10.9); Hematocrit 37.6 VOL% (42.0-52.0); Hemoglobin 12.3 GM/DL (14.0-18.0); Immature Granulocytes % 0.6 %; Immature Granulocytes Absolute 0.06 #; Lymphocytes # 1.3 10*3/uL (1.4-4.0); Lymphocytes % 13.1 % (21.2-54.2); Mean Corpuscular HGB Conc 32.7 GM/DL (32-36); Mean Corpuscular Volume 99.5 FL (87-102); Mean Platelet Volume 10.2 FL (9.6-12.0); Monocytes % 6.8 % (1.7-12.7); Neutrophils % 75.8 % (38.7-73.9); Platelet Count 145 T/CUMM (130-400); Red Blood Count 3.78 MC/CUMM (3.8-5.5); Red Cell Distribution Width 13.3 % (9.3-17.3); White Blood Count 9.9 T/CUMM (4-12)
[2020-04-05 05:00] LABS: Eosinophils 3 % (0-10); Hypochromasia Slight; Lymphocytes 10 % (20-55); Microcytosis Slight; Platelet Estimate Adequate; Segmented Neutrophils 79 % (50-85); Total Cells Counted 100
[2020-04-05 05:05] LABS: Calcium 8.6 MG/DL (8.5-10.1); Osmolality,Calculated 278.4 MOS/KG (273-304); Potassium 3.7 MMOL/L (3.5-5.1)
[2020-04-05 05:09] LABS: Ferritin 578.5 ng/ml (26-388)
[2020-04-05] MEDS: PANTOPRAZOLE 40 MG TABLET PO SCH (10:20)
[2020-04-05] MEDS: CHOLECALCIFEROL 1,000 UNIT TABLET PO SCH (10:20)
[2020-04-05] MEDS: MULTIVITAMIN (CENTRUM) TABLET PO SCH (10:20)
[2020-04-05] MEDS: APIXABAN 5 MG TABLET PO SCH ×2 (10:20→21:43)
[2020-04-05] MEDS: amLODIPine 5 MG TABLET PO SCH (10:20)
[2020-04-05] MEDS: LOSARTAN 50 MG TABLET PO SCH (10:21)
[2020-04-05] MEDS: carvediloL 3.125 MG TABLET PO SCH ×2 (10:21→21:43)
[2020-04-05] MEDS: COENZYME Q10 100 MG CAPSULE PO SCH (10:21)
[2020-04-05] MEDS: SODIUM CHLORIDE 0.9% 1,000 ML IV SCH ×2 (10:23→11:31)
[2020-04-05] MEDS: TAMSULOSIN 0.4 MG CAPSULE PO SCH (21:37)
[2020-04-05] MEDS: OMEGA 3 ACID ETHYL ESTERS 1 GM CAPSULE PO SCH (21:43)
[2020-04-06] MEDS: PIPERACILLIN/TAZOBACTAM 3,375 MG in SODIUM CHLORIDE 0.9% 100 ML IV SCH ×2 (00:16→10:02)
[2020-04-06 04:00] LABS: Basophils % 0.2 % (0.0-0.8); Eosinophils # 0.1 10*3/uL (0.0-0.87); Eosinophils % 0.6 % (0.00-10.9); Hematocrit 30.6 VOL% (42.0-52.0); Hemoglobin 9.3 GM/DL (14.0-18.0); Immature Granulocytes % 0.3 %; Immature Granulocytes Absolute 0.03 #; Lymphocytes # 0.8 10*3/uL (1.4-4.0); Mean Corpuscular HGB Conc 30.4 GM/DL (32-36); Mean Corpuscular Volume 99.7 FL (87-102); Mean Platelet Volume 9.9 FL (9.6-12.0); Neutrophils % 81.9 % (38.7-73.9); Platelet Count 191 T/CUMM (130-400); Red Blood Count 3.07 MC/CUMM (3.8-5.5); Red Cell Distribution Width 18.4 % (9.3-17.3); White Blood Count 8.8 T/CUMM (4-12)
[2020-04-06 04:33] LABS: Albumin 2.9 G/DL (3.4-5.0); Bilirubin,Total 0.4 MG/DL (0.2-1.0); Calcium 9.4 MG/DL (8.5-10.1); Osmolality,Calculated 296.1 MOS/KG (273-304); Potassium 5.4 MMOL/L (3.5-5.1); Total Protein 7.9 G/DL (6.4-8.3)
[2020-04-06] MEDS: SODIUM CHLORIDE 0.9% 1,000 ML IV SCH (07:35)
[2020-04-06 08:26] LABS: Calcium 9.2 MG/DL (8.5-10.1); Osmolality,Calculated 275.5 MOS/KG (273-304); Potassium 3.8 MMOL/L (3.5-5.1)
[2020-04-06] MEDS: amLODIPine 5 MG TABLET PO SCH (10:01)
[2020-04-06] MEDS: carvediloL 3.125 MG TABLET PO SCH (10:01)
[2020-04-06] MEDS: LOSARTAN 50 MG TABLET PO SCH (10:01)
[2020-04-06 11:27] VITALS: BP 134/83
[2020-04-06] MEDS: COENZYME Q10 100 MG CAPSULE PO SCH (12:04)
[2020-04-06] MEDS: MULTIVITAMIN (CENTRUM) TABLET PO SCH (12:04)
[2020-04-06] MEDS: APIXABAN 5 MG TABLET PO SCH (12:04)
[2020-04-06] MEDS: CHOLECALCIFEROL 1,000 UNIT TABLET PO SCH (12:04)
[2020-04-06] MEDS: PANTOPRAZOLE 40 MG TABLET PO SCH (12:04)
== END 2020-04-06 15:20 | disposition home or self-care (01) | DRG 445 ==
LOC: N.ED 12:41 → N.3E 12:41 → SUATTDRO 04-04 13:33
PROVIDERS: ADMIT Internal Medicine; ATTEND Emergency Medicine